=== PATIENT | female | born 1940 | race American Indian/Alaskan Native ===

== ENCOUNTER 2018-01-15 17:52 | Emergency (ER) | payer OTHER ==
[2018-01-15 19:46] VITALS: BP 146/74
--- NOTE | 2018-01-15 20:30 | EDM.PDOC ---
ED HPI GENERAL MEDICAL PROBLEM - General Chief Complaint: Respiratory Problem Stated Complaint: [id number] FEVER BAD COLD SINUSES HURT Time Seen by Provider: 01/15/18 20:30 Source of Information: Reports: Patient, RN, RN Notes Reviewed History Limitations: Reports: No Limitations - History of Present Illness INITIAL COMMENTS - FREE TEXT/NARRATIVE: Pt presents to the ER with c/o sinus congestion and cough for over a month. Patient admits to feeling hot and cold at times, and pain in the muscles in her back from coughing. Pt denies N/V/D, sore throat, CP or SOB. Onset: Gradual Location: Reports: Face - Related Data Allergies Allergy/AdvReac Type Severity Reaction Status Date / Time codeine Allergy Unknown UNKNOWN Verified 01/15/18 19:14 tramadol Allergy Unknown UNKNOWN Verified 01/15/18 19:14 Home Meds: Home Meds Glucosamine/D3/Boswellia Evonne [Osteo Bi-Flex Caplet] 1 each PO DAILY 01/15/18 [ History] Multivitamin [Multivitamins] 1 each PO DAILY 01/15/18 [History] Schneider-3 Fatty Acids [Schneider-3] 1 cap PO DAILY 01/15/18 [History] Past Medical History - Past Health History Medical/Surgical History: Denies Medical/Surgical History Respiratory History: Reports: Asthma Social & Family History - Family History Family Medical History: Noncontributory - Tobacco Use Smoking Status *Q: Former Smoker Used Tobacco, but Quit: Yes Month/Year Tobacco Last Used: 2014 Second Hand Smoke Exposure: No - Caffeine Use Caffeine Use: Reports: Coffee, Tea - Recreational Drug Use Recreational Drug Use: No - Living Situation & Occupation Living situation: Reports: with Family ED ROS GENERAL - Review of Systems Review Of Systems: ROS reveals no pertinent complaints other than HPI. ED EXAM, GENERAL - Physical Exam Exam: See Below Exam Limited By: No Limitations General Appearance: Alert, WD/WN, No Apparent Distress Eye Exam: Bilateral Eye: EOMI, Normal Inspection Ears: Normal External Exam, Hearing Grossly Normal Nose: Normal Inspection Throat/Mouth: Normal Inspection, Normal Lips, Normal Teeth, Normal Gums, Normal Oropharynx, Normal Voice, No Airway Compromise Head: Atraumatic, Normocephalic, Facial Tenderness (frontal and maxillary sinus tenderness) Neck: Normal Inspection, Supple, Non-Tender, Full Range of Motion Respiratory/Chest: No Respiratory Distress, No Accessory Muscle Use, Chest Non- Tender, Rales (to bases bilaterally) Cardiovascular: Normal Peripheral Pulses, Regular Rate, Rhythm, No Edema, No Gallop, No JVD, No Murmur, No Rub Peripheral Pulses: 2+: Radial (L), Radial (R) GI/Abdominal: Normal Bowel Sounds, Soft, Non-Tender, No Organomegaly, No Distention, No Abnormal Bruit, No Mass (Female) Exam: Deferred Rectal (Female) Exam: Deferred Back Exam: Normal Inspection, Full Range of Motion, NT Extremities: Normal Inspection, Normal Range of Motion, Non-Tender, Normal Capillary Refill, No Pedal Edema Neurological: Alert, Oriented, CN II-XII Intact, Normal Cognition, Normal Gait, Normal Reflexes, No Motor/Sensory Deficits Psychiatric: Normal Affect, Normal Mood Skin Exam: Warm, Dry, Intact, Normal Color, No Rash Lymphatic: No Adenopathy Course - Vital Signs Last Recorded V/S: Last Vital Signs Temp 98.8 F 01/15/18 18:55 Pulse 78 01/15/18 18:55 Resp 18 01/15/18 18:55 BP 146/74 H 01/15/18 18:55 Pulse Ox 95 01/15/18 18:55 - Orders/Labs/Meds Meds: Medications Discontinued Medications Generic Name Dose Route Start Last Admin Trade Name Jose Luis PRN Reason Stop Dose Admin Amoxicillin/Clavulanate Potassium 1 tab 01/15/18 20:34 01/15/18 20:40 Augmentin 875 Mg/125 Mg PO 01/15/18 20:35 1 tab ONETIME ONE Administration Departure - Departure Time of Disposition: 20:28 Disposition: Home, Self-Care 01 Condition: Fair Clinical Impression: Sinusitis Qualifiers: Sinusitis location: unspecified location Chronicity: acute Recurrence: not specified as recurrent Qualified Code(s): J01.90 - Acute sinusitis, unspecified - Discharge Information Instructions: Sinusitis, Adult, [id number] Forms: ED Department Discharge Additional Instructions: RX: Augmentin, Tessalon Val Drink plenty of water Continue to use saline nasal spray and loratidine as directed Follow up with your primary care facility
[2018-01-15] MEDS ORDERED: Amoxicillin/Clavulanate K 875-125 MG Tab PO ONE (20:34)
== END 2018-01-15 20:43 | disposition home or self-care (01) ==
LOC: DL.ED 17:52
DX: J01.90 Acute sinusitis, unspecified (principal); Z88.5 Allergy status to narcotic agent; Z87.891 Personal history of nicotine dependence; Z79.899 Other long term (current) drug therapy
CPT/HCPCS: 99283; A9270

== ENCOUNTER 2018-02-13 21:43 | Emergency (ER) | payer OTHER | END 2018-02-14 00:56 | disposition left against medical advice (07) | LOC: DL.ED 21:43 | DX: Z53.21 Procedure and treatment not carried out due to patient leaving prior to being seen by health care provider (principal) ==

== ENCOUNTER 2018-06-28 08:04 | Day surgery (SDC) | payer OTHER ==
[~2018-06-28 08:04] MED LIST: Dilation Soln 1 EA EACH EYELF ONE; Moxifloxacin 0.5% Ophth Soln 3 ML Bottle EYELF ONE; Phenylephrine 10% Ophth Soln 5 ML Bot EYELF ONE; Povidone-Iodine 5% Sterile Ophth Soln 30 ML Bottle EYELF ONE; Proparacaine 0.5% Ophth Soln 15 ML Bottle EYELF ONE; Sodium Chloride 0.9% 10 ML Syringe FLUSH SCH; Timolol Maleate 0.5% Ophth Soln 5 ML Bottle EYELF ONE
[2018-06-28] MEDS ORDERED: Midazolam 1 MG/ML 2 ML SDV IV ONE (08:05)
[2018-06-28] MEDS ORDERED: Sodium Chloride 0.9% 10 ML Syringe IV ONE (08:05)
[2018-06-28] MEDS ORDERED: Dexamethasone 4 MG/ML SDV IV ONE (08:05)
[2018-06-28] MEDS ORDERED: Povidone-Iodine 5% Sterile Ophth Soln 30 ML Bottle EYELF ONE (09:21)
[2018-06-28] MEDS ORDERED: Tetracaine HCl/PF 0.5% 4 ML Bottle EYELF ONE (09:21)
[2018-06-28] MEDS ORDERED: Balanced Salt Solution Ophth Irrig 500 ML Bottle IOCULAR ONE (09:26)
[2018-06-28] MEDS ORDERED: Lidocaine 1% 30 ML SDV INJECT ONE (09:27)
[2018-06-28] MEDS ORDERED: Balanced Salt Solution Ophth Irrig 15 ML Bottle EYELF ONE (09:27)
[2018-06-28] MEDS ORDERED: Chondroitin Sulfate/Hyaluronate Sodium Ophth Inj 0.75 ML Syringe EYELF ONE (09:29)
[2018-06-28] MEDS ORDERED: Vancomycin 500 MG SDV EYELF ONE (09:30)
[2018-06-28] MEDS ORDERED: Diclofenac Sodium 0.1% Ophth Soln 5 ML Bottle EYELF ONE (09:38)
[2018-06-28] MEDS ORDERED: Apraclonidine 0.5% Ophth Soln 5 ML Bot EYELF ONE (09:38)
[2018-06-28] MEDS ORDERED: Dexamethasone/Neomycin/Polymyxin B Ophth Oint 3.5 GM Tube EYELF ONE (09:38)
[2018-06-28 10:57] VITALS: BP 138/70
--- NOTE | 2018-06-28 11:29 | OR ---
DATE: PREOPERATIVE DIAGNOSIS: Visually significant mixed cataract, left eye. POSTOPERATIVE DIAGNOSIS: Visually significant mixed cataract, left eye. PROCEDURE: Extracapsular cataract extraction with intraocular lens implant, left eye. ANESTHESIA: Topical/local MAC. COMPLICATIONS: None. INDICATION: Ms. Ramirez was seen in the clinic. She is unhappy with her vision. She has noticed a progressive decrease over time. She has difficulty reading, difficulty driving at night. Clinical examination reveals visually significant mixed cataract with best spectacle corrected vision of 20/40. Oncoming light reveals a visual acuity of 20 unable. I explained options; I offered cataract surgery; and I explained risks including the potential for infection, retinal detachment, and loss of vision amongst others. We discussed implant options. She has requested a monofocal implant. OPERATIVE DESCRIPTION: After informed consent was obtained and the risks, benefits, and alternatives were explained, the patient was brought to the operative suite and topical anesthesia was administered. The patient was then prepped and draped in the sterile fashion, and attention was placed on the left eye. A sterile lid speculum was placed into the left eye to allow operative exposure. A full-thickness paracentesis was made in the temporal portion of the operative eye. Preservative-free lidocaine 0.1 mL was injected into the anterior chamber followed by viscoelastic. A full-thickness corneal incision was then made into the anterior chamber. A bent needle cystotome was used to create a small anselmo in the anterior capsule. The capsulorrhexis forceps was then used to create a 360-degree curvilinear capsulorrhexis. The nucleus was then removed using a phacoemulsification handpiece, and the remaining cortical material was then removed with irrigation and aspiration handpiece. Following removal of the cortical material, the capsular bag was then inspected and noted to be free of any holes or tears. Viscoelastic was then injected into the capsular bag, and the intraocular lens was inserted into the capsular bag. The viscoelastic material was then removed from both the anterior and posterior chambers and from behind the IOL. The lens and capsular bag were then reinspected. The IOL was well centered and the capsular bag intact. The wound and paracentesis sites were inspected and hydrated with balanced saline solution. Both were found to be self-sealing. The intraocular pressure was assessed digitally and found to be within normal range. A good red reflex was noted at the completion of the procedure. No complications occurred during the operation. At the completion of the procedure, Maxitrol, Voltaren, and Iopidine drops were placed into the operative eye. A sterile eye shield was placed over the operative eye, and the patient was transported to the postoperative recovery area having tolerated the procedure well. Postoperative instructions were given along with a postoperative appointment. The patient was advised to call with any questions or concerns. [facility] /[id number]
== END 2018-06-28 10:42 | disposition home or self-care (01) ==
LOC: DL.SDS 08:04
PROVIDERS: ATTEND Ophthalmology
DX: E11.36 Type 2 diabetes mellitus with diabetic cataract (principal); J45.909 Unspecified asthma, uncomplicated; M19.90 Unspecified osteoarthritis, unspecified site; Z88.5 Allergy status to narcotic agent; Z88.6 Allergy status to analgesic agent; Z87.891 Personal history of nicotine dependence; Z79.899 Other long term (current) drug therapy
CPT/HCPCS: 66984; A9270; C1780; J1100; J2250; J3370; J7050

== ENCOUNTER 2018-07-05 08:09 | Day surgery (SDC) | payer OTHER ==
[2018-07-05] MEDS ORDERED: Midazolam 1 MG/ML 2 ML SDV IV ONE (08:10)
[2018-07-05] MEDS ORDERED: Sodium Chloride 0.9% 10 ML Syringe IV ONE (08:10)
[2018-07-05] MEDS ORDERED: Dexamethasone 4 MG/ML SDV IV ONE (08:10)
[2018-07-05] MEDS ORDERED: Povidone-Iodine 5% Sterile Ophth Soln 30 ML Bottle EYERT ONE ×2 (09:05→10:18)
[2018-07-05] MEDS ORDERED: Tetracaine HCl/PF 0.5% 4 ML Bottle EYERT ONE (09:06)
[2018-07-05] MEDS ORDERED: Apraclonidine 0.5% Ophth Soln 5 ML Bot EYERT ONE (09:06)
[2018-07-05] MEDS ORDERED: Diclofenac Sodium 0.1% Ophth Soln 5 ML Bottle EYERT ONE (09:06)
[2018-07-05] MEDS ORDERED: Dexamethasone/Neomycin/Polymyxin B Ophth Oint 3.5 GM Tube EYERT ONE (09:07)
[2018-07-05] MEDS ORDERED: Balanced Salt Solution Ophth Irrig 15 ML Bottle EYERT ONE (09:07)
[2018-07-05] MEDS ORDERED: Balanced Salt Solution Ophth Irrig 500 ML Bottle IOCULAR ONE (09:07)
[2018-07-05] MEDS ORDERED: Dexamethasone 4 MG/ML SDV IOCULAR ONE (09:10)
[2018-07-05] MEDS ORDERED: Lidocaine 1% 30 ML SDV ONE (09:12)
[2018-07-05] MEDS ORDERED: Phenylephrine 10% Ophth Soln 5 ML Bot EYERT ONE (10:18)
[2018-07-05] MEDS ORDERED: Moxifloxacin 0.5% Ophth Soln 3 ML Bottle EYERT ONE (10:18)
[2018-07-05] MEDS ORDERED: Proparacaine 0.5% Ophth Soln 15 ML Bottle EYERT ONE (10:18)
[2018-07-05] MEDS ORDERED: Timolol Maleate 0.5% Ophth Soln 5 ML Bottle EYERT ONE (10:18)
[2018-07-05] MEDS ORDERED: Dilation Soln 1 EA EACH EYERT ONE (10:18)
[2018-07-05] MEDS ORDERED: Sodium Chloride 0.9% 10 ML Syringe FLUSH SCH (10:30)
[2018-07-05 10:45] VITALS: BP 120/55
--- NOTE | 2018-07-05 10:53 | OR ---
DATE: 07/05/2018 PREOPERATIVE DIAGNOSIS: Visually significant mixed cataract, right eye. POSTOPERATIVE DIAGNOSIS: Visually significant mixed cataract, right eye. PROCEDURE: Extracapsular cataract extraction with intraocular lens implant, right eye. ANESTHESIA: Topical/local MAC. COMPLICATIONS: None. INDICATION: Ms. Ramirez was seen in the clinic with complaints of blurred vision, difficulty reading, and difficulty driving. Examination revealed mixed cataract. I explained options, offered cataract surgery; and I explained risks including the potential for infection, retinal detachment, loss of vision, and need for additional surgery amongst others. She requested a monofocal implant. OPERATIVE DESCRIPTION: After informed consent was obtained and the risks, benefits, and alternatives were explained, the patient was brought to the operative suite and topical anesthesia was administered. The patient was then prepped and draped in the sterile fashion, and attention was placed on the right eye. A sterile lid speculum was placed into the right eye to allow operative exposure. A full-thickness paracentesis was made in the temporal portion of the operative eye. Preservative-free lidocaine 0.1 mL was injected into the anterior chamber followed by viscoelastic. A full-thickness corneal incision was then made into the anterior chamber. A bent needle cystotome was used to create a small anselmo in the anterior capsule. The capsulorrhexis forceps was then used to create a 360-degree curvilinear capsulorrhexis. The nucleus was then removed using a phacoemulsification handpiece, and the remaining cortical material was then removed with irrigation and aspiration handpiece. Following removal of the cortical material, the capsular bag was then inspected and noted to be free of any holes or tears. Viscoelastic was then injected into the capsular bag, and the intraocular lens was inserted into the capsular bag. The viscoelastic material was then removed from both the anterior and posterior chambers and from behind the IOL. The lens and capsular bag were then reinspected. The IOL was well centered and the capsular bag intact. The wound and paracentesis sites were inspected and hydrated with balanced saline solution. Both were found to be self-sealing. The intraocular pressure was assessed digitally and found to be within normal range. A good red reflex was noted at the completion of the procedure. No complications occurred during the operation. At the completion of the procedure, Maxitrol, Voltaren, and Iopidine drops were placed into the operative eye. A sterile eye shield was placed over the operative eye, and the patient was transported to the postoperative recovery area having tolerated the procedure well. Postoperative instructions were given along with a postoperative appointment. The patient was advised to call with any questions or concerns. [facility] /[id number]
== END 2018-07-05 10:25 | disposition home or self-care (01) ==
LOC: DL.SDS 08:09
PROVIDERS: ATTEND Ophthalmology
DX: E11.36 Type 2 diabetes mellitus with diabetic cataract (principal); H25.811 Combined forms of age-related cataract, right eye; M15.9 Polyosteoarthritis, unspecified; J45.909 Unspecified asthma, uncomplicated; Z79.84 Long term (current) use of oral hypoglycemic drugs; Z79.899 Other long term (current) drug therapy; Z87.891 Personal history of nicotine dependence
CPT/HCPCS: A9270-GY; C1780; J1100; J2250; J7050

== ENCOUNTER 2019-12-17 06:24 | Day surgery (SDC) | payer BC, OTHER ==
[~2019-12-17 06:24] MED LIST changes: +Dextrose 5%-0.45% NaCl 1,000 ML IV SCH; -Dilation Soln 1 EA EACH EYELF ONE; +Midazolam 1 MG/ML 2 ML SDV ONE; -Moxifloxacin 0.5% Ophth Soln 3 ML Bottle EYELF ONE; -Phenylephrine 10% Ophth Soln 5 ML Bot EYELF ONE; -Povidone-Iodine 5% Sterile Ophth Soln 30 ML Bottle EYELF ONE; -Proparacaine 0.5% Ophth Soln 15 ML Bottle EYELF ONE; +Sodium Chloride 0.9% 10 ML Syringe FLUSH PRN; -Sodium Chloride 0.9% 10 ML Syringe FLUSH SCH; -Timolol Maleate 0.5% Ophth Soln 5 ML Bottle EYELF ONE; +fentaNYL 100 MCG/2 ML SDV ONE
[2019-12-17] MEDS ORDERED: fentaNYL 100 MCG/2 ML SDV IV ONE ×3 (06:25→07:31)
[2019-12-17] MEDS ORDERED: Midazolam 1 MG/ML 2 ML SDV IV ONE ×3 (06:25→07:34)
--- NOTE | 2019-12-17 09:27 | OR ---
DATE: 12/17/2019 PROCEDURE: Total colonoscopy and multiple cold snare polypectomies. INSTRUMENT USED: PCF-H190DL Olympus video colonoscope. PREMEDICATIONS: Fentanyl 100 mcg intravenous, Versed 2.5 mg intravenous, nasal O2 cannula. Procedure was done under pulse oximetry, BP recording, and topographical drafter. INDICATIONS: The patient with rectal bleeding. Colonoscopic examination is done for detection of any polypoid lesions and removal, endoscopic hemostasis therapy if needed. DESCRIPTION OF PROCEDURE: Initial rectal exam was unremarkable. Rigid anoscopy showed small internal hemorrhoids without bleeding from them. The colonoscope was passed with ease. Numerous scattered diverticula were noted in the distal left colon along with some deformity. The scope was passed with ease up to the ileocecal area. Photographs were taken of the normal-appearing cecum identified by landmarks of appendiceal orifice and double-bulged ileocecal folds. No bleeding was noted from any of the visualized areas at the commencement of the examination. The bowel preparation was found to be adequate, Harrietta scale 2 in right colon, scale 3 in other areas of the colon. Total score 7. No stricture. No vascular ectasia. No large isolated ulcerations seen. No evidence of diffuse inflammatory bowel disease in the form of friability, contact bleeding, or ulcerations. 3 mm sized benign-appearing polyps, 2 in number were noted in the transverse colon. Photograph was taken of the largest polyp, cold snare polypectomies were done, the tissues were retrieved and sent for histopathology. Probing the proximal sides of folds and flexures using adequate distention and clearing up the stool material, withdrawal of the scope was made. No bleeding was noted from any of the visualized areas at the completion of examination. IMPRESSION: 1. Internal hemorrhoids. 2. Diverticulosis. 3. Diminutive transverse colon polyps. The patient tolerated the procedure well. [facility] /[id number]
[2019-12-17 09:56] VITALS: BP 107/60; PULSE 60
--- NOTE | 2019-12-17 13:48 | LETTER ---
12/17/2019 Ivette Acuña, MICAELA [facility] [address] [place] [address] RE: BETI FARRIS : 1940 Dear Ms. Acuña: Ms. Beti Farris had colonoscopic examination done this morning and she tolerated the procedure well. I herewith send a copy of the endoscopy note and photographs for your review. Thank you. Sincerely, [facility] /[id number]
== END 2019-12-17 10:00 | disposition home or self-care (01) ==
LOC: DL.ENDO 06:24
PROVIDERS: ATTEND Internal Medicine Gastroenterology
DX: D12.3 Benign neoplasm of transverse colon (principal); K57.31 Diverticulosis of large intestine without perforation or abscess with bleeding; K64.8 Other hemorrhoids; H91.90 Unspecified hearing loss, unspecified ear; M19.90 Unspecified osteoarthritis, unspecified site; E66.09 Other obesity due to excess calories; Z68.29 Body mass index [BMI] 29.0-29.9, adult
CPT/HCPCS: 45385; J2250; J3010; J7042

== ENCOUNTER 2020-07-22 20:04 | Inpatient (IN) | payer BC, MEDICARE, OTHER ==
[2020-07-22 21:08] LABS: ANION GAP 17.5 mEq/L (7-13); CHLORIDE,CL 101 mmol/L (98-107); SODIUM,NA 135 mmol/L (136-145)
--- NOTE | 2020-07-22 21:38 | CR ---
PROCEDURE INFORMATION: Exam: XR Chest, 1 View Exam date and time: 07/22/2020 9:05 PM Age: 80 years old Clinical indication: Cough; Additional info: Covid + cough TECHNIQUE: Imaging protocol: XR of the chest Views: 1 view. COMPARISON: CR Chest 1V Frontal 04/24/2016 8:59 PM FINDINGS: Lungs: Clear lungs. Pleural space: No pneumothorax. No sizable pleural effusion. Heart/Mediastinum: No cardiomegaly. Bones/joints: Unremarkable. IMPRESSION: Clear lungs.
[2020-07-22] MEDS ORDERED: Dexamethasone 4 MG/ML SDV IVPUSH ONE (21:42)
--- NOTE | 2020-07-22 21:45 | EDM.PDOC ---
ED HPI GENERAL MEDICAL PROBLEM - General Chief Complaint: General Stated Complaint: 97.3*, COUGH, CHILLS, DIARRHEA, LOW OXYGEN Time Seen by Provider: 07/22/20 20:15 Source of Information: Reports: Patient History Limitations: Reports: No Limitations - History of Present Illness INITIAL COMMENTS - FREE TEXT/NARRATIVE: ED with c/o SOB with activity, body aches, Diarrhea x 3 today. Onset sx Tuesday. Hx asthma, and arthritis. Called EMS this john but refused transport. EMS called to notify that patient had sats in 80. On arrival 86-88 on room air. - Related Data Allergies Allergy/AdvReac Type Severity Reaction Status Date / Time codeine Allergy Unknown Nausea and Verified 07/22/20 20:42 Vomiting tramadol Allergy Unknown Nausea and Verified 07/22/20 20:42 Vomiting Home Meds: Home Meds Albuterol Sulfate [Proair Hfa] 1 puff INH ASDIRECTED PRN 06/23/18 [History] Diclofenac Sodium [Voltaren 0.1% Ophth Soln] 1 applic TOP ASDIRECTED 06/23/18 [History] Lidocaine 5% [Lidoderm 5%] 1 patch TOP DAILY PRN 06/23/18 [History] Sodium Chloride [Saline Nasal Haines] 1 spray NASBOTH ASDIRECTED 06/23/18 [History] Acetaminophen [Tylenol Arthritis Pain] 2 tab PO ASDIRECTED 06/28/18 [History] diphenhydrAMINE [Benadryl] 25 mg PO DAILY PRN 12/14/19 [History] Past Medical History - Past Health History Medical/Surgical History: Denies Medical/Surgical History HEENT History: Reports: Allergic Rhinitis, Cataract Cardiovascular History: Reports: None Respiratory History: Reports: Asthma Gastrointestinal History: Reports: None Genitourinary History: Reports: None RN DOCUMENTATION History: Reports: , Spontaneous Musculoskeletal History: Reports: Arthritis Neurological History: Reports: None Psychiatric History: Reports: Anxiety Endocrine/Metabolic History: Reports: Diabetes, Type II Hematologic History: Reports: Anemia Immunologic History: Reports: None Oncologic (Cancer) History: Reports: None Dermatologic History: Reports: Other (See Below) Other Dermatologic History: RED RASHY AREA TO l) FT, LOWER LEG - Infectious Disease History Infectious Disease History: Reports: Measles, Shingles - Past Surgical History Head Surgeries/Procedures: Reports: None HEENT Surgical History: Reports: None, Cataract Surgery Cardiovascular Surgical History: Reports: None Respiratory Surgical History: Reports: None GI Surgical History: Reports: None Female Surgical History: Reports: None Musculoskeletal Surgical History: Reports: None Social & Family History - Family History Family Medical History: Noncontributory - Tobacco Use Tobacco Use Status *Q: Never Tobacco User Second Hand Smoke Exposure: No - Caffeine Use Caffeine Use: Reports: Coffee, Tea Other Caffeine Use: 12 OZ DAILY - Recreational Drug Use Recreational Drug Use: No - Living Situation & Occupation Living situation: Reports: with Family ED ROS GENERAL - Review of Systems Review Of Systems: See Below Constitutional: Reports: Chills, Decreased Appetite (still has taste and smeell) Respiratory: Reports: Shortness of Breath, Cough Cardiovascular: Reports: Dyspnea on Exertion. Denies: Chest Pain, Edema, Lightheadedness, Palpitations GI/Abdominal: Reports: Diarrhea Musculoskeletal: Reports: Other (generalized body aches, worse on Tuesday and Tuesday, some better today) Neurological: Reports: No Symptoms ED EXAM, GENERAL - Physical Exam Exam: See Below Exam Limited By: No Limitations General Appearance: Alert, Mild Distress Eye Exam: Bilateral Eye: EOMI Ears: Normal External Exam, Normal TMs, Hearing Loss Nose: Normal Inspection Throat/Mouth: Normal Inspection Head: Atraumatic, Normocephalic Neck: Normal Inspection Respiratory/Chest: No Respiratory Distress, Decreased Breath Sounds (bases, dyspnea mild with ambulation) Cardiovascular: Normal Peripheral Pulses, Regular Rate, Rhythm GI/Abdominal: Normal Bowel Sounds Back Exam: Normal Inspection Extremities: Normal Inspection Neurological: Alert, Oriented, Normal Cognition Psychiatric: Normal Affect Skin Exam: Warm, Dry, Intact, Normal Color Course - Vital Signs Last Recorded V/S: Last Vital Signs Temp 99.1 F 07/22/20 22:15 Pulse 69 07/22/20 22:15 Resp 18 07/22/20 22:15 BP 106/44 L 07/22/20 22:15 Pulse Ox 92 L 07/22/20 22:34 - Orders/Labs/Meds Orders: Active Orders 24 hr Category Date Time Status Admission Diagnosis [ADT] Stat ADT 07/22/20 21:43 Ordered Admission Status [Patient Status] [ADT] Routine ADT 07/22/20 21:43 Active Patient Status [ADT] Routine ADT 07/22/20 22:34 Active Bedrest Bedside Commode [RC] ASDIRECTED Care 07/22/20 22:27 Active Blood Glucose Check, Bedside [RC] QIDACANDBED Care 07/22/20 22:27 Active Cardiac Monitoring [RC] . DIRECTED Care 07/22/20 21:43 Active EKG Documentation Completion [RC] STAT Care 07/22/20 20:13 Active Intake and Output [RC] QSHIFT Care 07/22/20 22:35 Active Oxygen Therapy [RC] PRN Care 07/22/20 22:34 Active RT Aerosol Therapy [RC] ASDIRECTED Care 07/22/20 22:37 Active VTE/DVT Education [RC] PER UNIT ROUTINE Care 07/22/20 22:34 Active Vital Signs [RC] Q4H Care 07/22/20 22:34 Active Clear Liquid Diet [DIET] Diet 07/23/20 Breakfast Active CBC W/O DIFF,HEMOGRAM [HEME] AM Lab 07/23/20 05:11 Ordered COMPREHENSIVE METABOLIC PN,CMP [CHEM] AM Lab 07/23/20 05:11 Ordered CULTURE BLOOD [BC] Stat Lab 07/22/20 20:37 Received Acetaminophen [TylenoL] Med 07/22/20 22:27 Active 650 mg PO Q4H PRN Albuterol [Proventil Neb Soln] Med 07/22/20 22:27 Active 2.5 mg NEB Q2H PRN Enoxaparin [Lovenox] Med 07/23/20 09:00 Active 40 mg SUBCUT DAILY Ondansetron [Zofran ODT] Med 07/22/20 22:27 Active 4 mg PO Q4H PRN Sodium Chloride 0.9% [Normal Saline] 1,000 ml Med 07/22/20 22:30 Active IV ASDIRECTED Isolation [COMM] Routine Oth 07/22/20 20:14 Active Resuscitation Status Routine Resus Stat 07/22/20 22:27 Ordered Medication Orders Acetaminophen (Tylenol) 650 mg PO Q4H PRN PRN Reason: Pain (Mild 1-3)/fever Albuterol (Proventil Neb Soln) 2.5 mg NEB Q2H PRN PRN Reason: shortness of breath/wheezing Albuterol (Proventil Hfa) 0 gm INH QID ADAM Dexamethasone (Dexamethasone) 6 mg IVPUSH DAILY ADAM Dextrose/Water (Dextrose 50% In Water) 50 ml IV ASDIRECTED PRN PRN Reason: Hypoglycemia Diphenhydramine HCl (Benadryl) 25 mg PO DAILY PRN PRN Reason: Allergies Enoxaparin Sodium (Lovenox) 40 mg SUBCUT DAILY ADAM Glucagon (Glucagen) 1 mg IM ASDIRECTED PRN PRN Reason: Hypoglycemia Sodium Chloride (Normal Saline) 1,000 mls @ 125 mls/hr IV ASDIRECTED ADAM Remdesivir 100 mg/ Sodium (Chloride) 230 mls @ 230 mls/hr IV Q24H ADAM Stop: 07/26/20 23:59 Insulin Human Lispro (Humalog) 0 unit SUBCUT WITHMEALSANDBED ADAM; Protocol Lidocaine (Lidoderm 5%) 700 mg TOP DAILY PRN PRN Reason: Pain Ondansetron HCl (Zofran Odt) 4 mg PO Q4H PRN PRN Reason: nausea, able to take PO Labs: Laboratory Tests 07/22/20 07/22/20 07/22/20 Range/Units 20:15 20:37 20:37 WBC 3.3 L (5.0-10.0) 10^3/uL RBC 4.76 (4.2-5.4) 10^6/uL Hgb 14.9 (12.0-16.0) g/dL Hct 43.3 (37.0-47.0) % MCV 91.0 D (80-100) fL MCH 31.3 (27.0-34.0) pg MCHC 34.4 (33.0-35.0) g/dL Plt Count 113 L (150-450) 10^3/uL Neut % (Auto) 47.4 (42.2-75.2) % Lymph % (Auto) 42.6 (20.5-50.1) % [place] % (Auto) 9.7 H (2-8) % Eos % (Auto) 0.0 L (1.0-3.0) % Baso % (Auto) 0.3 (0.0-1.0) % PT (9.0-12.0) SEC INR (0.9-1.2) D-Dimer, Quantitative 329 (0-400) ng/mL Sodium (136-145) mmol/L Potassium (3.5-5.1) mmol/L Chloride (98-107) mmol/L Carbon Dioxide (21-32) mmol/L Anion Gap (7-13) mEq/L BUN (7-18) mg/dL Creatinine (0.55-1.02) mg/dL Est Cr Clr Drug Dosing mL/min Estimated GFR (MDRD) BUN/Creatinine Ratio (No establ ref range) Glucose (74-99) mg/dL Lactic Acid (0.4-2.0) mmol/L Calcium (8.5-10.1) mg/dL Ferritin (8-252) mg/mL Total Bilirubin (0.2-1.0) mg/dL AST (15-37) U/L ALT (14-59) U/L Alkaline Phosphatase (46-116) U/L Troponin I (0.000-0.056) ng/mL B-Natriuretic Peptide (0-100) pg/ml Total Protein (6.4-8.2) g/dL Albumin (3.4-5.0) g/dL Globulin Albumin/Globulin Ratio SARS CoV-2 RNA Rapid KALLIE Positive H (NEGATIVE) 07/22/20 07/22/20 07/22/20 Range/Units 20:37 20:37 20:37 WBC (5.0-10.0) 10^3/uL RBC (4.2-5.4) 10^6/uL Hgb (12.0-16.0) g/dL Hct (37.0-47.0) % MCV (80-100) fL MCH (27.0-34.0) pg MCHC (33.0-35.0) g/dL Plt Count (150-450) 10^3/uL Neut % (Auto) (42.2-75.2) % Lymph % (Auto) (20.5-50.1) % [place] % (Auto) (2-8) % Eos % (Auto) (1.0-3.0) % Baso % (Auto) (0.0-1.0) % PT 11.3 (9.0-12.0) SEC INR 1.2 (0.9-1.2) D-Dimer, Quantitative (0-400) ng/mL Sodium 135 L (136-145) mmol/L Potassium 3.5 (3.5-5.1) mmol/L Chloride 101 (98-107) mmol/L Carbon Dioxide 20 L (21-32) mmol/L Anion Gap 17.5 H (7-13) mEq/L BUN 14 (7-18) mg/dL Creatinine 0.87 (0.55-1.02) mg/dL Est Cr Clr Drug Dosing 42.42 mL/min Estimated GFR (MDRD) > 60 BUN/Creatinine Ratio 16.1 (No establ ref range) Glucose 151 H (74-99) mg/dL Lactic Acid 2.0 (0.4-2.0) mmol/L Calcium 7.8 L (8.5-10.1) mg/dL Ferritin (8-252) mg/mL Total Bilirubin 1.2 H (0.2-1.0) mg/dL AST 207 H (15-37) U/L ALT 94 H (14-59) U/L Alkaline Phosphatase 93 (46-116) U/L Troponin I < 0.017 (0.000-0.056) ng/mL B-Natriuretic Peptide 27 (0-100) pg/ml Total Protein 7.6 (6.4-8.2) g/dL Albumin 3.0 L (3.4-5.0) g/dL Globulin 4.6 Albumin/Globulin Ratio 0.65 SARS CoV-2 RNA Rapid KALLIE (NEGATIVE) 07/22/20 Range/Units 20:37 WBC (5.0-10.0) 10^3/uL RBC (4.2-5.4) 10^6/uL Hgb (12.0-16.0) g/dL Hct (37.0-47.0) % MCV (80-100) fL MCH (27.0-34.0) pg MCHC (33.0-35.0) g/dL Plt Count (150-450) 10^3/uL Neut % (Auto) (42.2-75.2) % Lymph % (Auto) (20.5-50.1) % [place] % (Auto) (2-8) % Eos % (Auto) (1.0-3.0) % Baso % (Auto) (0.0-1.0) % PT (9.0-12.0) SEC INR (0.9-1.2) D-Dimer, Quantitative (0-400) ng/mL Sodium (136-145) mmol/L Potassium (3.5-5.1) mmol/L Chloride (98-107) mmol/L Carbon Dioxide (21-32) mmol/L Anion Gap (7-13) mEq/L BUN (7-18) mg/dL Creatinine (0.55-1.02) mg/dL Est Cr Clr Drug Dosing mL/min Estimated GFR (MDRD) BUN/Creatinine Ratio (No establ ref range) Glucose (74-99) mg/dL Lactic Acid (0.4-2.0) mmol/L Calcium (8.5-10.1) mg/dL Ferritin 203 (8-252) mg/mL Total Bilirubin (0.2-1.0) mg/dL AST (15-37) U/L ALT (14-59) U/L Alkaline Phosphatase (46-116) U/L Troponin I (0.000-0.056) ng/mL B-Natriuretic Peptide (0-100) pg/ml Total Protein (6.4-8.2) g/dL Albumin (3.4-5.0) g/dL Globulin Albumin/Globulin Ratio SARS CoV-2 RNA Rapid KALLIE (NEGATIVE) Meds: Medications Generic Name Dose Route Start Last Admin Trade Name Freq PRN Reason Stop Dose Admin Acetaminophen 650 mg 07/22/20 22:27 Tylenol PO Q4H PRN Pain (Mild 1-3)/fever Albuterol 2.5 mg 07/22/20 22:27 Proventil Neb Soln NEB Q2H PRN shortness of breath/wheezing Albuterol 0 gm 07/23/20 09:00 Proventil Hfa INH QID ADAM Dexamethasone 6 mg 07/23/20 09:00 Dexamethasone IVPUSH DAILY ADAM Dextrose/Water 50 ml 07/22/20 23:07 Dextrose 50% In Water IV ASDIRECTED PRN Hypoglycemia Diphenhydramine HCl 25 mg 07/22/20 22:37 Benadryl PO DAILY PRN Allergies Enoxaparin Sodium 40 mg 07/23/20 09:00 Lovenox SUBCUT DAILY [facility] Glucagon 1 mg 07/22/20 23:07 Glucagen IM ASDIRECTED PRN Hypoglycemia Sodium Chloride 1,000 mls @ 125 mls/hr 07/22/20 22:30 Normal Saline IV ASDIRECTED ADAM Remdesivir 100 mg/ Sodium 230 mls @ 230 mls/hr 07/23/20 23:00 Chloride IV 07/26/20 23:59 Q24H [facility] Insulin Human Lispro 0 unit 07/23/20 08:00 Humalog SUBCUT WITHMEALSANDBED [facility] Protocol Lidocaine 700 mg 07/22/20 22:37 Lidoderm 5% TOP DAILY PRN Pain Ondansetron HCl 4 mg 07/22/20 22:27 Zofran Odt PO Q4H PRN nausea, able to take PO Discontinued Medications Generic Name Dose Route Start Last Admin Trade Name Freq PRN Reason Stop Dose Admin Dexamethasone 6 mg 07/22/20 21:42 07/22/20 21:55 Dexamethasone IVPUSH 07/22/20 21:43 6 mg ONETIME ONE Administration Remdesivir 200 mg/ Sodium 210 mls @ 210 mls/hr 07/22/20 23:00 07/22/20 23:54 Chloride IV 07/22/20 23:59 210 mls/hr ONETIME ONE Administration Departure - Departure Time of Disposition: 21:45 Disposition: Admitted As Inpatient 67 Condition: Fair Clinical Impression: Hypoxemia, COVID-19 - Discharge Information Sepsis Event Note (ED) - Evaluation Sepsis Screening Result: Possible Sepsis Risk - Focused Exam Vital Signs: Vital Signs Temp Pulse Resp BP BP Pulse Ox 07/22/20 22:15 99.1 F 69 18 106/44 L 122/48 L 92 L 07/22/20 20:16 100.5 F 80 28 H 120/63 90 L - My Orders Last 24 Hours: My Active Orders 07/22/20 20:13 EKG Documentation Completion [RC] STAT 07/22/20 20:14 Isolation [COMM] Routine 07/22/20 20:37 CULTURE BLOOD [BC] Stat 07/22/20 21:43 Admission Diagnosis [ADT] Stat Admission Status [Patient Status] [ADT] Routine Cardiac Monitoring [RC] . DIRECTED - Assessment/Plan Last 24 Hours: My Active Orders 07/22/20 20:13 EKG Documentation Completion [RC] STAT 07/22/20 20:14 Isolation [COMM] Routine 07/22/20 20:37 CULTURE BLOOD [BC] Stat 07/22/20 21:43 Admission Diagnosis [ADT] Stat Admission Status [Patient Status] [ADT] Routine Cardiac Monitoring [RC] . DIRECTED
[2020-07-22] MEDS ORDERED: Ondansetron 4 MG Tab.DIS PO PRN (22:27)
[2020-07-22] MEDS ORDERED: Albuterol 0.083% 2.5 MG/3 ML Neb Soln NEB PRN (22:27)
[2020-07-22] MEDS ORDERED: Acetaminophen 325 MG Tab PO PRN (22:27)
[2020-07-22] MEDS ORDERED: Sodium Chloride 0.9% 1,000 ML IV SCH (22:30)
[2020-07-22] MEDS ORDERED: Lidocaine 5% 700 MG Patch TOP PRN (22:37)
[2020-07-22] MEDS ORDERED: Glucagon,Human Recombinant 1 MG Vial IM PRN (23:07)
[2020-07-22] MEDS ORDERED: 50% Dextrose in Water 50 ML Syringe IV PRN (23:07)
--- NOTE | 2020-07-22 23:55 | HP ---
CHIEF COMPLAINT: Fever, chills, arthralgias, and shortness of breath. HISTORY OF PRESENT ILLNESS: The patient is a 80-year-old lady who was admitted through the emergency room because the patient has been having some fever and chills and arthralgias that have been going on since Tuesday and today she had diarrhea 3 times. She called in the EMS and her saturation was in the 80s on room air, and the patient then decided to proceed to the emergency room by private vehicle. On arrival in the emergency room, the patient's saturation was 86% to 88% on room air. The patient denies any chest pain, orthopnea, PND, headache, abdominal pain, dysuria, nor any other complaints. In the emergency room, she had some workup including [id number], which came back positive. Because of this, she was then admitted for further evaluation and management. PAST MEDICAL HISTORY: Remarkable for asthma, osteoarthritis, and type 2 diabetes mellitus. FAMILY HISTORY: Noncontributory. SOCIAL HISTORY: The patient is a nonsmoker, nonalcohol drinker. 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 REVIEW OF SYSTEMS: As in HPI. The rest of the review of systems is negative. HOME MEDICATIONS: Albuterol sulfate, Voltaren, Lidoderm, saline nasal spray, and Tylenol. ALLERGIES: Codeine and tramadol. PHYSICAL EXAMINATION: General: The patient is alert and oriented, very pleasant lady, not in any acute distress. Vital Signs: Blood pressure is 120/63, pulse of 80, respirations 20, temperature of 100.5, saturation is 90% on room air. HEENT: Normocephalic. There are pink palpebral conjunctivae. Sclerae anicteric. No JVD. No lymphadenopathy. Neck: Supple. Heart: Regular rate and rhythm. Normal S1 and S2. No gallops. No rubs. Lungs: Diminished breath sounds in both bases, but no significant crackles, no wheezing. Abdomen: Soft, nontender. Bowel sounds positive. Extremities: Negative for any significant pedal edema. No calf tenderness. LABORATORY WORKUP: CBC: WBC 3.3, hemoglobin is 14.9, hematocrit is 43.3, platelets are 113. Protime is 11.3, INR is 1.2. Comp panel: Sodium is 135, potassium is 3.5, chloride is 101, carbon dioxide is 20, anion gap is 17.5. Glucose is 151, calcium 7.8, total bilirubin of 1.2, AST of 207, ALT of 94. The rest of the panel unremarkable. Troponin is less than 0.017. BNP is 27. SARS- CoV-2 RNA, rapid KALLIE is positive. Chest x-ray is within normal limits. ADMITTING DIAGNOSES: 1. Coronavirus disease 19 infection. 2. Hypoxemia. 3. Gastroenteritis. 4. History of asthma. 5. Type 2 diabetes mellitus. TREATMENT PLAN: The patient is going to be admitted to isolation. She will be given remdesivir IV and dexamethasone, and blood cultures sent, and she will be given bronchodilators, and the rest of the management as necessary. The patient is a full code. [facility] /[id number]
[2020-07-23 07:08] LABS: ANION GAP 14.2 mEq/L (7-13); CHLORIDE,CL 103 mmol/L (98-107); SODIUM,NA 136 mmol/L (136-145)
[2020-07-23] MEDS: Albuterol 6.7 GM Inhaler INH SCH ×4 (09:49→21:54)
[2020-07-23] MEDS: Enoxaparin 40 MG/0.4 ML Syringe SUBCUT SCH (09:55)
[2020-07-23] MEDS: Dexamethasone 4 MG/ML SDV IVPUSH SCH (09:59)
--- NOTE | 2020-07-23 10:49 | PN ---
DATE: 07/23/2020 SUBJECTIVE: The patient is a 80-year-old lady who was admitted with hypoxemia and fever and chills and diarrhea and COVID-19 infection. The patient this morning is feeling a little bit better, although still feeling achy in her joints, but so far has not had any problems with diarrhea. The patient denies any chest pain or shortness of breath nor any other complaints. LABORATORY WORKUP: This morning. CBC: WBC is 1.7, hemoglobin is 14.5, hematocrit is 42.7, platelets are 109. Comp panel: Glucose is 186, AST is 178, ALT is 87, albumin is 2.7. The rest of the panel unremarkable. OBJECTIVE: Vital Signs: Blood pressure is 102/46, pulse 52, respirations 20, temperature of 96.3, saturation is 94% on room air. Heart: Regular rate and rhythm. Normal S1 and S2. No gallops. No rubs. Lungs: Equal bilaterally. No crackles, no wheezing. Abdomen: Soft, nontender. Bowel sounds positive. Extremities: Negative for any pedal edema. No calf tenderness. PLAN: We will continue with her present management, and continue with dexamethasone and remdesivir, and we will recheck CBC and comp panel in a.m. [facility] /[id number]
[2020-07-23] MEDS: Insulin Lispro 100 Units/ML 3 ML Vial SUBCUT SCH ×4 (11:35→21:51)
[2020-07-23] MEDS: diphenhydrAMINE 25 MG Tab PO PRN (21:54)
[2020-07-24] MEDS: Menthol/Methyl Salicylate 85 GM Tube TOP PRN ×2 (00:50→20:53)
[2020-07-24 07:02] LABS: CHLORIDE,CL 105 mmol/L (98-107); SODIUM,NA 138 mmol/L (136-145)
[2020-07-24] MEDS: Dexamethasone 4 MG/ML SDV IVPUSH SCH (10:39)
[2020-07-24] MEDS: Albuterol 6.7 GM Inhaler INH SCH ×4 (10:39→20:52)
[2020-07-24] MEDS: Insulin Lispro 100 Units/ML 3 ML Vial SUBCUT SCH ×4 (10:41→20:51)
[2020-07-24] MEDS: Enoxaparin 40 MG/0.4 ML Syringe SUBCUT SCH (10:42)
--- NOTE | 2020-07-24 11:52 | PN ---
DATE: 07/24/2020 SUBJECTIVE: The patient continues to do well, and so far, has not had any problems with diarrhea, and the arthralgia and the body aches have also improved. The patient denies any chest pain, worsening of shortness of breath, abdominal pain, or any other complaints. LABORATORY DATA: Lab workup this morning. CBC: WBC is 3.3, hemoglobin is 14, hematocrit is 41, platelet is 114. Comp panel: Glucose is 252, AST is 90, ALT is 64 (improving). Rest of the panel unremarkable. OBJECTIVE: Vital Signs: Blood pressure is 93/52, pulse of 60, respirations 18, temperature of 98.2, saturation is 93% on room air. Heart: Regular rate and rhythm. Normal S1 and S2. No gallops. No rubs. Lungs: Equal bilaterally. No crackles. No wheezing. Abdomen: Soft, nontender. Bowel sounds positive. Extremities: Negative for any pedal edema. No calf tenderness. MEDICATIONS: Reviewed. PLAN: We will continue with her present management and we will finish the 5-day course of Remdesivir. [facility] /[id number]
[2020-07-24] MEDS: diphenhydrAMINE 25 MG Tab PO PRN (22:41)
[2020-07-25 07:00] LABS: CHLORIDE,CL 108 mmol/L (98-107); SODIUM,NA 141 mmol/L (136-145)
[2020-07-25] MEDS: Enoxaparin 40 MG/0.4 ML Syringe SUBCUT SCH (09:17)
[2020-07-25] MEDS: Insulin Lispro 100 Units/ML 3 ML Vial SUBCUT SCH ×4 (09:18→21:13)
[2020-07-25] MEDS: Dexamethasone 4 MG/ML SDV IVPUSH SCH (09:18)
[2020-07-25] MEDS: Albuterol 6.7 GM Inhaler INH SCH ×4 (09:19→21:15)
--- NOTE | 2020-07-25 12:39 | PN ---
DATE: 07/25/2020 SUBJECTIVE: The patient continues to do well. The patient denies any significant ongoing complaints. Denies any diarrhea, chest pain, shortness of breath, nor any other significant complaints and the patient's generalized aches and pains have actually improved too. LABORATORY DATA: Lab workup this morning. Comp panel: Glucose is 209, calcium 7.6, AST is 54 (improvement), total protein of 6, and albumin is 2.4. The rest of the panel is unremarkable. OBJECTIVE: Vital Signs: Blood pressure is 89/44, pulse of 59, respirations 16, temperature of 97.9, and saturation is 92% on room air. Heart: Regular rate and rhythm. Normal S1 and S2. No gallops. No rubs. Lungs: Equal bilaterally. No significant crackles. No wheezing. Abdomen: Soft, nontender. Bowel sounds positive. Extremities: Negative for any significant pedal edema. No calf tenderness. PLAN: We will continue with her present management, and she continues to do well. Anticipate discharge in a.m. [facility] /[id number]
[2020-07-25] MEDS: diphenhydrAMINE 25 MG Tab PO PRN (21:16)
[2020-07-25] MEDS: Menthol/Methyl Salicylate 85 GM Tube TOP PRN (21:18)
[2020-07-26] MEDS ORDERED: Sodium Chloride 0.9% 10 ML Syringe IV SCH
[2020-07-26] MEDS: Insulin Lispro 100 Units/ML 3 ML Vial SUBCUT SCH (08:00)
[2020-07-26] MEDS: Dexamethasone 4 MG/ML SDV IVPUSH SCH (09:00)
[2020-07-26] MEDS: Enoxaparin 40 MG/0.4 ML Syringe SUBCUT SCH (09:00)
[2020-07-26 09:53] VITALS: BP 91/42
--- NOTE | 2020-07-26 10:09 | PN ---
DATE: 07/26/2020 SUBJECTIVE: The patient continues to do well. She had a good night sleep. Denies any myalgias or arthralgias. Denies any chest pain, shortness of breath, fever, chills, nor any other complaints. LABORATORY WORKUP: This morning, glucose is 207. OBJECTIVE: Vital Signs: Blood pressure is 106/94, pulse 55, respirations of 18, temperature of 98.1, saturation is 93% on room air. Heart: Regular rate and rhythm. Normal S1 and S2. No gallops. No rubs. Lungs: Equal bilaterally. No crackles. No wheezing. Abdomen: Soft, nontender. Bowel sounds positive. Extremities: Negative for any pedal edema. No calf tenderness. PLAN: We will discharge the patient home today, and we will continue with dexamethasone for the next 5 days and continue with albuterol inhaler. Follow up with primary care provider in 7 to 10 days. [facility] /[id number]
--- NOTE | 2020-07-26 10:09 | DISCH ---
FINAL DIAGNOSES: 1. Coronavirus-19 infection. 2. Hypoxemia. 3. Gastroenteritis. 4. Asthma. 5. Type 2 diabetes mellitus. BRIEF HISTORY OF PRESENT ILLNESS: Please see H and P. PERTINENT LABS, X-RAY, AND OTHER TESTS ON ADMISSION: See H and P. Blood cultures x2 negative. Influenza A and B are negative. HOSPITAL COURSE: The patient was admitted to General Medicine floor/isolation. The patient was started on dexamethasone IV and also started on Remdesivir IV, and also on albuterol inhalers. She was placed on deep vein thrombosis prophylaxis as well as sliding scale insulin. The patient did well with above regimen. The patient's oxygen saturation improved, as well as her diarrhea. Rest of the hospital course was uncomplicated. She remained stable and she was subsequently discharged. CONDITION ON DISCHARGE: Improved. DISCHARGE INSTRUCTIONS: We will continue with dexamethasone for the next 5 days, and we will also continue with albuterol inhaler and continue with the rest of her home medications. Follow up with primary care provider in 7 to 10 days. [facility] /[id number]
[2020-07-26] MEDS: Albuterol 6.7 GM Inhaler INH SCH (11:40)
[2020-07-26 11:49] VITALS: PULSE 95
== END 2020-07-26 11:00 | disposition home or self-care (01) | DRG 137 ==
LOC: DL.ED 20:04 → DL.MS 21:51 → UNDOADMIN 21:51 → DL.MS 22:34
PROVIDERS: ADMIT Internal Medicine; ATTEND Internal Medicine
PROC: XW033E5 Introduction of Remdesivir Anti-infective into Peripheral Vein, Percutaneous Approach, New Technology Group 5 (ICD-10-PCS; principal; 2020-07-22)
PROC: 8E0ZXY6 Isolation (ICD-10-PCS; 2020-07-22)
DX: U07.1 COVID-19 (principal); K52.9 Noninfective gastroenteritis and colitis, unspecified; J45.909 Unspecified asthma, uncomplicated; E11.9 Type 2 diabetes mellitus without complications; Z79.899 Other long term (current) drug therapy; M19.90 Unspecified osteoarthritis, unspecified site; Z88.5 Allergy status to narcotic agent; Z98.49 Cataract extraction status, unspecified eye
CPT/HCPCS: 36415; 71045; 80053; 80076; 82728; 82962; 83605; 83880; 84484; 85025; 85027; 85379; 85610; 87040; 87804; 93005; 96374; 99222; 99232; 99238; 99284; 99285-25; A9270-GY; J1100; J1650; J1815-GY; J7050; U0002

== ENCOUNTER 2020-08-15 15:56 | Inpatient (IN) | payer BC, MEDICARE, OTHER ==
[2020-08-15 17:51] LABS: ANION GAP 11.8 mEq/L (7-13); CHLORIDE,CL 103 mmol/L (98-107); SODIUM,NA 136 mmol/L (136-145)
--- NOTE | 2020-08-15 18:14 | EDM.PDOC ---
<RondonKris Karmen - Last Filed: 08/15/20 20:08> ED HPI GENERAL MEDICAL PROBLEM - General Chief Complaint: Fever Stated Complaint: SENT FROM [facility] Time Seen by Provider: 08/15/20 17:15 - Related Data Allergies Allergy/AdvReac Type Severity Reaction Status Date / Time codeine Allergy Unknown Nausea and Verified 08/15/20 17:13 Vomiting tramadol Allergy Unknown Nausea and Verified 08/15/20 17:13 Vomiting Home Meds: Home Meds Lidocaine 5% [Lidoderm 5%] 1 patch TOP DAILY PRN 06/23/18 [History] Sodium Chloride [Saline Nasal [place]] 1 spray NASBOTH ASDIRECTED PRN 06/23/18 [History] Acetaminophen [Tylenol Arthritis Pain] 2 tab PO ASDIRECTED 06/28/18 [History] diphenhydrAMINE [Benadryl] 25 mg PO DAILY PRN 12/14/19 [History] Acetaminophen [Tylenol] 650 mg PO Q4H PRN tablet 07/26/20 [Rx] Albuterol Sulfate [Proair Hfa] 1 puff INH QID 14 Days #1 07/26/20 [Rx] Departure - Departure Time of Disposition: 20:08 Disposition: Admitted As Inpatient 67 Condition: Fair Clinical Impression: Hypoxemia Pneumonia Qualifiers: Pneumonia type: due to unspecified organism Laterality: bilateral Lung location: lower lobe of lung Qualified Code(s): J18.9 - Pneumonia, unspecified organism - Discharge Information *PRESCRIPTION DRUG MONITORING PROGRAM REVIEWED*: Not Applicable *COPY OF PRESCRIPTION DRUG MONITORING REPORT IN PATIENT KEITH: Not Applicable <Sandi Nascimentoe - Last Filed: 08/16/20 08:20> ED HPI GENERAL MEDICAL PROBLEM - General Source of Information: Reports: Patient, RN, RN Notes Reviewed History Limitations: Reports: No Limitations - History of Present Illness INITIAL COMMENTS - FREE TEXT/NARRATIVE: Patient presents to the ED via personal vehicle with complaints of shortness of breath. The patient states she tested positive for COVID on 07/22/2020, and subsequently was hospitalized for this infection. She was discharged 07/26/2020 and states she has been fairly well since that time. She has been using an Albuterol rescue inhaler since her discharge for when her breathing became labored. She states her breathing has progressively increased in severity and frequency over the past two days to the point that she feels he albuterol is not working. She denies fever, shaking chills, chest pain, palpitations, vision changes, abdominal pain, nausea, vomiting, or diarrhea. She states she has not taken any additional medications for this problem. She does attest to receiving Dexamethasone as part of her treatment inpatient and [facility]sa send with a prescription as an outpatient. She denies tobacco, alcohol, or recreational substance use. 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 Musculoskeletal History: Reports: Arthritis Neurological History: Reports: None Psychiatric History: Reports: Anxiety Endocrine/Metabolic History: Reports: Diabetes, Type II Hematologic History: Reports: Anemia Immunologic History: Reports: None Oncologic (Cancer) History: Reports: None Dermatologic History: Reports: Other (See Below) Other Dermatologic History: RED RASHY AREA TO L) FT, LOWER LEG - Infectious Disease History Infectious Disease History: Reports: Measles, Novel Coronavirus, Shingles - Past Surgical History Head Surgeries/Procedures: Reports: None HEENT Surgical History: Reports: None, Cataract Surgery Cardiovascular Surgical History: Reports: None Respiratory Surgical History: Reports: None GI Surgical History: Reports: None Female Surgical History: Reports: None Musculoskeletal Surgical History: Reports: None Social & Family History - Family History Family Medical History: Noncontributory - Tobacco Use Tobacco Use Status *Q: Never Tobacco User - Caffeine Use Caffeine Use: Reports: Tea Other Caffeine Use: 12 OZ DAILY - Recreational Drug Use Recreational Drug Use: No - Living Situation & Occupation Living situation: Reports: with Family ED ROS GENERAL - Review of Systems Review Of Systems: Comprehensive ROS is negative, except as noted in HPI. ED EXAM, GENERAL - Physical Exam Exam: See Below Exam Limited By: No Limitations General Appearance: Alert, WD/WN, No Apparent Distress Eye Exam: Bilateral Eye: EOMI, Normal Inspection, PERRL Throat/Mouth: Normal Inspection, Normal Voice, No Airway Compromise Head: Atraumatic, Normocephalic Neck: Normal Inspection, Supple, Non-Tender, Full Range of Motion Respiratory/Chest: Chest Non-Tender, Rales, Accessory Muscle Use Cardiovascular: Normal Peripheral Pulses, Regular Rate, Rhythm, No Edema, No Gallop, No JVD, No Murmur, No Rub Peripheral Pulses: 2+: Radial (L), Radial (R) GI/Abdominal: Normal Bowel Sounds, Soft, Non-Tender, No Distention, No Mass, Pelvis Stable Back Exam: Normal Inspection, Full Range of Motion. No: CVA Tenderness (L), CVA Tenderness (R) Extremities: Normal Inspection, Normal Range of Motion, Non-Tender, No Pedal Edema, Normal Capillary Refill Neurological: Alert, Oriented, CN II-XII Intact, Normal Cognition, No Motor/Sensory Deficits Psychiatric: Normal Affect, Normal Mood Skin Exam: Warm, Dry, Intact, Normal Color, No Rash #1 Interpretation EKG Date: 08/15/20 Time: 17:36 Rhythm: NSR Rate (Beats/Min): 83 [place]: Normal P-Wave: Present QRS: RBBB ST-T: Normal QT: Normal Comparison: No Change (NSR; RBBB; No evidence of acute ischemia) Course - Vital Signs Last Recorded V/S: Last Vital Signs Temp 98.8 F 08/16/20 04:00 Pulse 80 08/16/20 04:00 Resp 20 08/16/20 04:00 BP 130/56 L 08/16/20 04:00 Pulse Ox 94 L 08/16/20 04:00 - Orders/Labs/Meds Orders: Active Orders 24 hr Category Date Time Status CULTURE BLOOD [BC] Stat Lab 08/15/20 17:23 Received Isolation [COMM] Routine Oth 08/15/20 17:15 Active Medication Orders Acetaminophen (Tylenol) 650 mg PO Q4H PRN PRN Reason: Pain (Mild 1-3)/fever Albuterol (Proventil Hfa) 0 gm INH Q4HR PRN PRN Reason: Wheezing Diphenhydramine HCl (Benadryl) 25 mg PO DAILY PRN PRN Reason: Allergies Enoxaparin Sodium (Lovenox) 80 mg SUBCUT Q12HR [facility] Last Admin: 08/15/20 21:48 Dose: 80 mg Documented by: ISHMAEL Furosemide (Lasix) 20 mg IVPUSH BID ADAM Last Admin: 08/15/20 21:50 Dose: 20 mg Documented by: ISHMAEL Azithromycin 500 mg/ Sodium (Chloride) 250 mls @ 250 mls/hr IV Q24H [facility] Last Admin: 08/15/20 21:50 Dose: 250 mls/hr Documented by: ISHMAEL Ceftriaxone Sodium 1 gm/ (Sodium Chloride) 50 mls @ 100 mls/hr IV Q24H [facility] Last Admin: 08/15/20 21:49 Dose: 100 mls/hr Documented by: ISHMAEL Lidocaine (Lidoderm 5%) 700 mg TOP DAILY PRN PRN Reason: Pain Mometasone Furoate/Formoterol Fumar (Dulera 200-5 Mcg) 2 puff IH BIDRT [facility] Ondansetron HCl (Zofran) 4 mg IVPUSH Q8H PRN PRN Reason: Nausea/Vomiting Last Admin: 08/15/20 22:37 Dose: 4 mg Documented by: ISHMAEL Labs: Laboratory Tests 08/15/20 08/15/20 08/15/20 Range/Units 17:23 17:23 17:23 WBC 3.4 L (5.0-10.0) 10^3/uL RBC 4.50 (4.2-5.4) 10^6/uL Hgb 14.5 (12.0-16.0) g/dL Hct 42.4 (37.0-47.0) % MCV 94.2 D (80-100) fL MCH 32.2 (27.0-34.0) pg MCHC 34.2 (33.0-35.0) g/dL Plt Count 177 (150-450) 10^3/uL Neut % (Auto) 53.4 (42.2-75.2) % Lymph % (Auto) 29.9 (20.5-50.1) % [place] % (Auto) 12.8 H (2-8) % Eos % (Auto) 3.0 (1.0-3.0) % Baso % (Auto) 0.9 (0.0-1.0) % D-Dimer, Quantitative (0-400) ng/mL Sodium 136 (136-145) mmol/L Potassium 3.8 (3.5-5.1) mmol/L Chloride 103 (98-107) mmol/L Carbon Dioxide 25 (21-32) mmol/L Anion Gap 11.8 (7-13) mEq/L BUN 7 (7-18) mg/dL Creatinine 0.78 (0.55-1.02) mg/dL Est Cr Clr Drug Dosing 46.25 mL/min Estimated GFR (MDRD) > 60 BUN/Creatinine Ratio 9.0 (No establ ref range) Glucose 97 (74-99) mg/dL Lactic Acid 1.7 (0.4-2.0) mmol/L Calcium 7.9 L (8.5-10.1) mg/dL Phosphorus 2.4 L (2.6-4.7) mg/dL Magnesium 1.9 (1.8-2.4) mg/dL Total Bilirubin 1.2 H (0.2-1.0) mg/dL AST 42 H (15-37) U/L ALT 28 (14-59) U/L Alkaline Phosphatase 87 (46-116) U/L Troponin I < 0.017 (0.000-0.056) ng/mL C-Reactive Protein 3.8 H (0.0-0.9) mg/dL B-Natriuretic Peptide (0-100) pg/ml Total Protein 7.0 (6.4-8.2) g/dL Albumin 2.4 L (3.4-5.0) g/dL Globulin 4.6 Albumin/Globulin Ratio 0.52 08/15/20 08/15/20 Range/Units 17:23 17:23 WBC (5.0-10.0) 10^3/uL RBC (4.2-5.4) 10^6/uL Hgb (12.0-16.0) g/dL Hct (37.0-47.0) % MCV (80-100) fL MCH (27.0-34.0) pg MCHC (33.0-35.0) g/dL Plt Count (150-450) 10^3/uL Neut % (Auto) (42.2-75.2) % Lymph % (Auto) (20.5-50.1) % [place] % (Auto) (2-8) % Eos % (Auto) (1.0-3.0) % Baso % (Auto) (0.0-1.0) % D-Dimer, Quantitative 1910 H (0-400) ng/mL Sodium (136-145) mmol/L Potassium (3.5-5.1) mmol/L Chloride (98-107) mmol/L Carbon Dioxide (21-32) mmol/L Anion Gap (7-13) mEq/L BUN (7-18) mg/dL Creatinine (0.55-1.02) mg/dL Est Cr Clr Drug Dosing mL/min Estimated GFR (MDRD) BUN/Creatinine Ratio (No establ ref range) Glucose (74-99) mg/dL Lactic Acid (0.4-2.0) mmol/L Calcium (8.5-10.1) mg/dL Phosphorus (2.6-4.7) mg/dL Magnesium (1.8-2.4) mg/dL Total Bilirubin (0.2-1.0) mg/dL AST (15-37) U/L ALT (14-59) U/L Alkaline Phosphatase (46-116) U/L Troponin I (0.000-0.056) ng/mL C-Reactive Protein (0.0-0.9) mg/dL B-Natriuretic Peptide 41 (0-100) pg/ml Total Protein (6.4-8.2) g/dL Albumin (3.4-5.0) g/dL Globulin Albumin/Globulin Ratio Meds: Medications Generic Name Dose Route Start Last Admin Trade Name Freq PRN Reason Stop Dose Admin Acetaminophen 650 mg 08/15/20 21:04 Tylenol PO Q4H PRN Pain (Mild 1-3)/fever Albuterol 0 gm 08/15/20 21:09 Proventil Hfa INH Q4HR PRN Wheezing Diphenhydramine HCl 25 mg 08/15/20 21:04 Benadryl PO DAILY PRN Allergies Enoxaparin Sodium 80 mg 08/15/20 21:00 08/15/20 21:48 Lovenox SUBCUT 80 mg Q12HR ADAM Administration Furosemide 20 mg 08/15/20 21:15 08/15/20 21:50 Lasix IVPUSH 20 mg BID ADAM Administration Azithromycin 500 mg/ Sodium 250 mls @ 250 mls/hr 08/15/20 22:00 08/15/20 21:50 Chloride IV 250 mls/hr Q24H ADAM Administration Ceftriaxone Sodium 1 gm/ 50 mls @ 100 mls/hr 08/15/20 21:00 08/15/20 21:49 Sodium Chloride IV 100 mls/hr Q24H ADAM Administration Lidocaine 700 mg 08/15/20 21:04 Lidoderm 5% TOP DAILY PRN Pain Mometasone Furoate/Formoterol Fumar 2 puff 08/16/20 07:00 Dulera 200-5 Mcg IH BIDRT ADAM Ondansetron HCl 4 mg 08/15/20 22:14 08/15/20 22:37 Zofran IVPUSH 4 mg Q8H PRN Administration Nausea/Vomiting Discontinued Medications Generic Name Dose Route Start Last Admin Trade Name Jose Luis PRN Reason Stop Dose Admin Iopamidol 100 ml 08/15/20 19:31 08/15/20 20:32 Isovue-370 (76%) IVPUSH 08/15/20 19:32 75 ml ONETIME ONE Administration - Radiology Interpretation Free Text/Narrative:: [facility] Final Radiology Report Call: [phone] assistance Online chat: [email or web address] Name: BETI FARRIS Age: 80Years F Date: 08/15/2020 SSN: -- : [id number] Study: CR CHEST 1V FRONTAL Requesting Physician: Sandi Nascimento Images: 1 Addl Studies: Provided Clinical History: Chest pain Contrast: Contrast Medium: Contrast Amount: Contrast Method: CONFIDENTIALITY STATEMENT This report is intended only for use by the referring physician, and only in accordance with law. If you received this in error, call [phone]. Page 1 of 1 PROCEDURE INFORMATION: Exam: XR Chest, 1 View Exam date and time: 08/15/2020 5:44 PM Age: 80 years old Clinical indication: Chest pain; Type not specified TECHNIQUE: Imaging protocol: XR of the chest Views: 1 view. COMPARISON: CR Chest 1V Frontal 07/22/2020 9:05 PM FINDINGS: Lungs: Patchy predominantly peripheral bilateral ground-glass opacities. . Pleural space: Unremarkable. No pleural effusion. No pneumothorax. Heart/Mediastinum: Heart is borderline enlarged. Bones/joints: Unremarkable. IMPRESSION: Bilateral predominantly peripheral ground-glass lung opacities suggesting a multifocal pneumonia. This appearance can be seen with atypical infections such as COVID-19. Correlate. Thank you for allowing us to participate in the care of your patient. Dictated and Authenticated by: Esequiel Hilton MD 08/15/2020 6:16 PM Central Time ([place] & [place]) Sepsis Event Note (ED) - Evaluation Sepsis Screening Result: No Definite Risk - My Orders Last 24 Hours: My Active Orders 08/15/20 17:15 Isolation [COMM] Routine 08/15/20 17:23 CULTURE BLOOD [BC] Stat - Assessment/Plan Last 24 Hours: My Active Orders 08/15/20 17:15 Isolation [COMM] Routine 08/15/20 17:23 CULTURE BLOOD [BC] Stat
[2020-08-15] MEDS ORDERED: Iopamidol 755 Mg/ML 100 ML Bottle IVPUSH ONE (19:31)
--- NOTE | 2020-08-15 19:49 | CT ---
PROCEDURE INFORMATION: Exam: CT Chest With Contrast Exam date and time: 08/15/2020 7:06 PM Age: 80 years old Clinical indication: Chest pain; Type not specified; Additional info: Shortness of breath; Rule out pe TECHNIQUE: Imaging protocol: Computed tomography of the chest with intravenous contrast. Radiation optimization: All CT scans at this facility use at least one of these dose optimization techniques: automated exposure control; mA and/or kV adjustment per patient size (includes targeted exams where dose is matched to clinical indication); or iterative reconstruction. Contrast material: [id number]; Contrast volume: 75 ml; Contrast route: INTRAVENOUS (IV); COMPARISON: CT Chest wo Cont 11/07/2014 11:13 AM FINDINGS: Lungs: Bilateral multifocal predominantly peripheral ground-glass as well as more consolidative airspace lung opacities. Interstitial lung abnormality most pronounced at the lung bases. Pleural space: Unremarkable. No pneumothorax. No pleural effusion. Heart: Very minimal coronary artery calcifications. Aorta: Unremarkable. No aortic aneurysm. Lymph nodes: Scattered nonenlarged to borderline sized mediastinal and hilar lymph nodes. Bones/joints: Unremarkable. No acute fracture. Soft tissues: Unremarkable. IMPRESSION: 1. Bilateral multifocal predominantly peripheral ground-glass opacities as well as interstitial abnormality most pronounced at the lung bases. Findings may reflect bilateral multifocal pneumonia/pneumonitis possibly superimposed on chronic lung change. Correlate for underlying infection including atypical infections. 2. No evidence for acute pulmonary embolus. 3. Multiple small to borderline sized thoracic lymph nodes may be reactive.
[2020-08-15] MEDS ORDERED: Lidocaine 5% 700 MG Patch TOP PRN (21:04)
[2020-08-15] MEDS ORDERED: diphenhydrAMINE 25 MG Tab PO PRN (21:04)
[2020-08-15] MEDS ORDERED: Albuterol 6.7 GM Inhaler INH PRN (21:09)
--- NOTE | 2020-08-15 21:25 | PCM.HP ---
H&P History of Present Illness - General Date of Service: 08/15/20 Admit Problem/Dx: Admission Diagnosis/Problem Admission Diagnosis/Problem Pneumonia Source of Information: Patient - History of Present Illness Initial Comments - Free Text/Narative: 80-year-old lady who has a history of previous Covid 19 infection in the middle July. That time she was hospitalized mostly for GI symptoms. Was treated with remdesivir and steroids. The patient presented with increasing shortness of breath in the past 2 days prior to admission. Albuterol inhaler did not help. Had fever up to 101. Has been checking oxygen saturations at home and it has been running as low as 85-87 on room air. No associated chest pain, abdominal pain, diarrhea. No apparent sick contact but she was out shopping, met with family, came to the clinic earlier. - Related Data Allergies/Adverse Reactions: Allergies Allergy/AdvReac Type Severity Reaction Status Date / Time codeine Allergy Unknown Nausea and Verified 08/15/20 17:13 Vomiting tramadol Allergy Unknown Nausea and Verified 08/15/20 17:13 Vomiting Home Medications: Home Meds Lidocaine 5% [Lidoderm 5%] 1 patch TOP DAILY PRN 06/23/18 [History] Sodium Chloride [Saline Nasal [place]] 1 spray NASBOTH ASDIRECTED PRN 06/23/18 [History] Acetaminophen [Tylenol Arthritis Pain] 2 tab PO ASDIRECTED 06/28/18 [History] diphenhydrAMINE [Benadryl] 25 mg PO DAILY PRN 12/14/19 [History] Acetaminophen [Tylenol] 650 mg PO Q4H PRN tablet 07/26/20 [Rx] Albuterol Sulfate [Proair Hfa] 1 puff INH QID 14 Days #1 07/26/20 [Rx] Past Medical History - Past Health History Medical/Surgical History: Denies Medical/Surgical History HEENT History: Reports: Allergic Rhinitis, Cataract Cardiovascular History: Reports: None Respiratory History: Reports: Asthma Gastrointestinal History: Reports: None Genitourinary History: Reports: None 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: , 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 Musculoskeletal History: Reports: Arthritis Neurological History: Reports: None Psychiatric History: Reports: Anxiety Endocrine/Metabolic History: Reports: Diabetes, Type II Hematologic History: Reports: Anemia Immunologic History: Reports: None Oncologic (Cancer) History: Reports: None Dermatologic History: Reports: Other (See Below) Other Dermatologic History: RED RASHY AREA TO L) FT, LOWER LEG - Infectious Disease History Infectious Disease History: Reports: Measles, Novel Coronavirus, Shingles - Past Surgical History Head Surgeries/Procedures: Reports: None HEENT Surgical History: Reports: None, Cataract Surgery Cardiovascular Surgical History: Reports: None Respiratory Surgical History: Reports: None GI Surgical History: Reports: None Female Surgical History: Reports: None Musculoskeletal Surgical History: Reports: None Social & Family History - Family History Family Medical History: Noncontributory - Tobacco Use Tobacco Use Status *Q: Never Tobacco User - Caffeine Use Caffeine Use: Reports: Tea Other Caffeine Use: 12 OZ DAILY - Recreational Drug Use Recreational Drug Use: No - Living Situation & Occupation Living situation: Reports: with Family H&P Review of Systems - Review of Systems: Review Of Systems: See Below General: Reports: Fever, Chills, Weakness Pulmonary: Reports: Shortness of Breath, Cough (with minimal sputum) Cardiovascular: Denies: Chest Pain Gastrointestinal: Denies: Abdominal Pain Genitourinary: Denies: Dysuria Psychiatric: Denies: Confusion Exam - Exam Exam: See Below - Vital Signs Vital Signs: Last Vital Signs Temp 99.6 F 08/15/20 16:56 Pulse 88 08/15/20 16:56 Resp 18 08/15/20 16:56 BP 104/54 L 08/15/20 16:56 Pulse Ox 99 08/15/20 17:45 Weight: 150 lb - Exam Quality Assessment: Supplemental Oxygen General: Alert, Oriented Neck: Supple Lungs: Rhonchi (bilateral basilar rhonchi). No: Wheezing Cardiovascular: Regular Rate, Regular Rhythm GI/Abdominal Exam: Normal Bowel Sounds, Soft, Non-Tender Extremities: No Pedal Edema - Patient Data Lab Results Last 24 hrs: Laboratory Results - last 24 hr 08/15/20 08/15/20 08/15/20 Range/Units 17:23 17:23 17:23 WBC 3.4 L (5.0-10.0) 10^3/uL RBC 4.50 (4.2-5.4) 10^6/uL Hgb 14.5 (12.0-16.0) g/dL Hct 42.4 (37.0-47.0) % MCV 94.2 D (80-100) fL MCH 32.2 (27.0-34.0) pg MCHC 34.2 (33.0-35.0) g/dL Plt Count 177 (150-450) 10^3/uL Neut % (Auto) 53.4 (42.2-75.2) % Lymph % (Auto) 29.9 (20.5-50.1) % [place] % (Auto) 12.8 H (2-8) % Eos % (Auto) 3.0 (1.0-3.0) % Baso % (Auto) 0.9 (0.0-1.0) % D-Dimer, Quantitative (0-400) ng/mL Sodium 136 (136-145) mmol/L Potassium 3.8 (3.5-5.1) mmol/L Chloride 103 (98-107) mmol/L Carbon Dioxide 25 (21-32) mmol/L Anion Gap 11.8 (7-13) mEq/L BUN 7 (7-18) mg/dL Creatinine 0.78 (0.55-1.02) mg/dL Est Cr Clr Drug Dosing 46.25 mL/min Estimated GFR (MDRD) > 60 BUN/Creatinine Ratio 9.0 (No establ ref range) Glucose 97 (74-99) mg/dL Lactic Acid 1.7 (0.4-2.0) mmol/L Calcium 7.9 L (8.5-10.1) mg/dL Phosphorus 2.4 L (2.6-4.7) mg/dL Magnesium 1.9 (1.8-2.4) mg/dL Total Bilirubin 1.2 H (0.2-1.0) mg/dL AST 42 H (15-37) U/L ALT 28 (14-59) U/L Alkaline Phosphatase 87 (46-116) U/L Troponin I < 0.017 (0.000-0.056) ng/mL C-Reactive Protein 3.8 H (0.0-0.9) mg/dL Total Protein 7.0 (6.4-8.2) g/dL Albumin 2.4 L (3.4-5.0) g/dL Globulin 4.6 Albumin/Globulin Ratio 0.52 SARS CoV-2 RNA Rapid KALLIE (NEGATIVE) 08/15/20 08/15/20 Range/Units 17:23 20:07 WBC (5.0-10.0) 10^3/uL RBC (4.2-5.4) 10^6/uL Hgb (12.0-16.0) g/dL Hct (37.0-47.0) % MCV (80-100) fL MCH (27.0-34.0) pg MCHC (33.0-35.0) g/dL Plt Count (150-450) 10^3/uL Neut % (Auto) (42.2-75.2) % Lymph % (Auto) (20.5-50.1) % [place] % (Auto) (2-8) % Eos % (Auto) (1.0-3.0) % Baso % (Auto) (0.0-1.0) % D-Dimer, Quantitative 1910 H (0-400) ng/mL Sodium (136-145) mmol/L Potassium (3.5-5.1) mmol/L Chloride (98-107) mmol/L Carbon Dioxide (21-32) mmol/L Anion Gap (7-13) mEq/L BUN (7-18) mg/dL Creatinine (0.55-1.02) mg/dL Est Cr Clr Drug Dosing mL/min Estimated GFR (MDRD) BUN/Creatinine Ratio (No establ ref range) Glucose (74-99) mg/dL Lactic Acid (0.4-2.0) mmol/L Calcium (8.5-10.1) mg/dL Phosphorus (2.6-4.7) mg/dL Magnesium (1.8-2.4) mg/dL Total Bilirubin (0.2-1.0) mg/dL AST (15-37) U/L ALT (14-59) U/L Alkaline Phosphatase (46-116) U/L Troponin I (0.000-0.056) ng/mL C-Reactive Protein (0.0-0.9) mg/dL Total Protein (6.4-8.2) g/dL Albumin (3.4-5.0) g/dL Globulin Albumin/Globulin Ratio SARS CoV-2 RNA Rapid KALLIE Negative (NEGATIVE) Result Diagrams: 08/15/20 17:23 08/15/20 17:23 Aaron Results Last 24 hrs: Microbiology 08/15/20 18:05 Influenza Type A Antigen Screen - Final Nasal, Unspecified NEGATIVE INFLUENZA A VIRUS AG REFERENCE RANGE: NEGATIVE Influenza Type B Antigen Screen - Final NEGATIVE INFLUENZA B VIRUS AG REFERENCE RANGE: NEGATIVE - Problem List (1) Hypoxemia SNOMED Code(s): 974897574 ICD Code: R09.02 - HYPOXEMIA Status: Acute Current Visit: No (2) Pneumonia SNOMED Code(s): 437046725 ICD Code: J18.9 - PNEUMONIA, UNSPECIFIED ORGANISM Status: Acute Current Visit: No Qualifiers: Pneumonia type: due to unspecified organism Laterality: bilateral Lung location: lower lobe of lung Qualified Code(s): J18.9 - Pneumonia, unspecified organism Problem List Initiated/Reviewed/Updated: Yes Orders Last 24hrs: Active Orders 24 hr Category Date Time Status Admission Diagnosis [ADT] Stat ADT 08/15/20 20:06 Ordered Admission Status [Patient Status] [ADT] Routine ADT 08/15/20 20:06 Active RT Post Treatment Assessment [RC] Click to Edit Care 08/15/20 21:09 Ordered RT Pre-Treatment Assessment [RC] Click to Edit Care 08/15/20 21:09 Ordered CV Arterial Duplex Legs Bi [US] Routine Exams 08/15/20 21:03 Ordered B-TYPE NATRIURETIC PEPTIDE,BNP [CHEM] AM Lab 08/16/20 05:11 Ordered B-TYPE NATRIURETIC PEPTIDE,BNP [CHEM] Urgent Lab 08/15/20 20:57 Ordered BASIC METABOLIC PANEL,BMP [CHEM] AM Lab 08/17/20 05:11 Ordered BASIC METABOLIC PANEL,BMP [CHEM] AM Lab 08/18/20 05:11 Ordered BASIC METABOLIC PANEL,BMP [CHEM] AM Lab 08/19/20 05:11 Ordered BASIC METABOLIC PANEL,BMP [CHEM] AM Lab 08/20/20 05:11 Ordered BASIC METABOLIC PANEL,BMP [CHEM] AM Lab 08/21/20 05:11 Ordered CBC WITH AUTO DIFF [HEME] AM Lab 08/17/20 05:11 Ordered CBC WITH AUTO DIFF [HEME] AM Lab 08/18/20 05:11 Ordered CBC WITH AUTO DIFF [HEME] AM Lab 08/19/20 05:11 Ordered CBC WITH AUTO DIFF [HEME] AM Lab 08/20/20 05:11 Ordered CBC WITH AUTO DIFF [HEME] AM Lab 08/21/20 05:11 Ordered CULTURE BLOOD [BC] Stat Lab 11/06/20 17:23 Received CULTURE SPUTUM + SMEAR [RM] Routine Lab 08/15/20 20:57 Ordered DD [D-DIMER QUANTITATIVE] [COAG] AM Lab 08/16/20 05:11 Ordered DD [D-DIMER QUANTITATIVE] [COAG] AM Lab 08/17/20 05:11 Ordered DD [D-DIMER QUANTITATIVE] [COAG] AM Lab 08/18/20 05:11 Ordered DD [D-DIMER QUANTITATIVE] [COAG] AM Lab 08/19/20 05:11 Ordered DD [D-DIMER QUANTITATIVE] [COAG] AM Lab 08/20/20 05:11 Ordered PROCALCITONIN [REF] Urgent Lab 08/15/20 20:57 Ordered TROPONIN I [CHEM] AM Lab 08/16/20 05:11 Ordered Acetaminophen [TylenoL] Med 08/15/20 21:04 Ordered 650 mg PO Q4H PRN Albuterol [Proventil HFA] Med 08/15/20 21:09 Ordered 2 puff INH Q4HR PRN Azithromycin [Zithromax] 500 mg Med 08/15/20 21:00 Ordered Sodium Chloride 0.9% [Normal Saline (AdvBag)] 250 ml IV Q24H Enoxaparin [Lovenox] Med 08/15/20 21:00 Ordered 80 mg SUBCUT Q12HR Furosemide [Lasix] Med 08/15/20 21:15 Ordered 20 mg IVPUSH BID Lidocaine 5% [Lidoderm 5%] Med 08/15/20 21:04 Ordered 1 patch TOP DAILY PRN Mometasone/Formoterol [Dulera 200-5 MCG] Med 08/16/20 07:00 Ordered 2 puff IH BIDRT cefTRIAXone [Rocephin] 1 gm Med 08/15/20 21:00 Ordered Sodium Chloride 0.9% [Normal Saline] 50 ml IV Q24H diphenhydrAMINE [Benadryl] Med 08/15/20 21:04 Ordered 25 mg PO DAILY PRN Isolation [COMM] Routine Oth 08/15/20 17:15 Active Medication Orders Acetaminophen (Tylenol) 650 mg PO Q4H PRN PRN Reason: Pain (Mild 1-3)/fever Albuterol (Proventil Hfa) 0 gm INH Q4HR PRN PRN Reason: Wheezing Diphenhydramine HCl (Benadryl) 25 mg PO DAILY PRN PRN Reason: Allergies Enoxaparin Sodium (Lovenox) 80 mg SUBCUT Q12HR ADAM Furosemide (Lasix) 20 mg IVPUSH BID [facility] Azithromycin 500 mg/ Sodium (Chloride) 250 mls @ 250 mls/hr IV Q24H ADAM Ceftriaxone Sodium 1 gm/ (Sodium Chloride) 50 mls @ 100 mls/hr IV Q24H [facility] [place] Lidocaine (Lidoderm 5%) 700 mg TOP DAILY PRN PRN Reason: Pain Mometasone Furoate/Formoterol Fumar (Dulera 200-5 Mcg) 2 puff IH BIDRT [facility] Assessment/Plan Comment:: 80-year-old lady who has a history of previous Covid 19 infection in the middle July. That time she was hospitalized mostly for GI symptoms. Was treated with remdesivir and steroids. The patient presented with increasing shortness of breath in the past 2 days prior to admission. Albuterol inhaler did not help. Had fever up to 101. Has been checking oxygen saturations at home and it has been running as low as 85-87 on room air. No associated chest pain, abdominal pain, diarrhea. No apparent sick contact but she was out shopping, met with family, came to the clinic earlier. Acute hypoxemic respiratory failure We will supplement oxygen as needed Abnormal chest x-ray The diffuse bilateral pulmonary opacities are typical for Covid. The patient had Covid infection earlier, tested negative for Covid this time. This is likely secondary to prior Covid infection Less likely new Covid infection. Might represent acute non-Covid viral or bacterial pneumonia. We will obtain sputum culture, blood culture, empirically treat with ceftriaxone and azithromycin Will treat with dulera, albuterol as needed Might represent acute congestive heart failure Obtain BNP, we will diurese the patient, monitor electrolytes and renal function Elevated d-dimer This might be secondary to recent Covid infection High risk for DVT, pulmonary embolism, thrombotic complications of Covid 19 infection Will obtain lower extremity ultrasound to rule out DVT Start therapeutic anticoagulation with Lovenox consider repeating CT with contrast if ultrasound of the leg is negative Follow d-dimer daily
[2020-08-15] MEDS: Enoxaparin 80 MG/0.8 ML Syringe SUBCUT SCH (21:48)
[2020-08-15] MEDS: cefTRIAXone 1 GM in Sodium Chloride 0.9% 50 ML IV SCH (21:49)
[2020-08-15] MEDS: Furosemide 40 MG/4 ML VIAL IVPUSH SCH (21:50)
[2020-08-15] MEDS: Azithromycin 500 MG in Sodium Chloride 0.9% 250 ML IV SCH (21:50)
[2020-08-15] MEDS: Ondansetron 4 MG/2 ML SDV IVPUSH PRN (22:37)
[2020-08-16] MEDS: Formoterol/Mometasone 200-5 MCG 8.8 GM Inhaler IH SCH ×2 (10:47→18:52)
[2020-08-16] MEDS: Enoxaparin 80 MG/0.8 ML Syringe SUBCUT SCH ×2 (10:48→21:44)
[2020-08-16] MEDS: Furosemide 40 MG/4 ML VIAL IVPUSH SCH (10:49)
--- NOTE | 2020-08-16 11:27 | PCM.PN ---
- General Info Date of Service: 08/16/20 Admission Dx/Problem (Free Text): Admission Diagnosis/Problem Admission Diagnosis/Problem Pneumonia Subjective Update: feeling okay, still have cough with some sputum production Shortness of breath is better On oxygen No abdominal pain, no nausea, no diarrhea Functional Status: Reports: Pain Controlled, Tolerating Diet - Review of Systems General: Reports: Weakness. Denies: Fever Pulmonary: Reports: Shortness of Breath, Cough, Sputum. Denies: Wheezing Cardiovascular: Denies: Chest Pain, Edema Neurological: Denies: Confusion Psychiatric: Denies: Confusion, Anxiety - Patient Data Vitals - Most Recent: Last Vital Signs Temp 99.4 F 08/16/20 08:00 Pulse 64 08/16/20 08:00 Resp 20 08/16/20 08:00 BP 97/44 L 08/16/20 08:00 Pulse Ox 97 08/16/20 08:00 Weight - Most Recent: 150 lb I&O - Last 24 Hours: Intake & Output 08/15/20 08/16/20 08/16/20 22:59 06:59 14:59 Intake Total 250 100 Balance 250 100 Lab Results Last 24 Hours: Laboratory Results - last 24 hr 08/15/20 08/15/20 08/15/20 Range/Units 17:23 17:23 17:23 WBC 3.4 L (5.0-10.0) 10^3/uL RBC 4.50 (4.2-5.4) 10^6/uL Hgb 14.5 (12.0-16.0) g/dL Hct 42.4 (37.0-47.0) % MCV 94.2 D (80-100) fL MCH 32.2 (27.0-34.0) pg MCHC 34.2 (33.0-35.0) g/dL Plt Count 177 (150-450) 10^3/uL Neut % (Auto) 53.4 (42.2-75.2) % Lymph % (Auto) 29.9 (20.5-50.1) % [place] % (Auto) 12.8 H (2-8) % Eos % (Auto) 3.0 (1.0-3.0) % Baso % (Auto) 0.9 (0.0-1.0) % D-Dimer, Quantitative (0-400) ng/mL Sodium 136 (136-145) mmol/L Potassium 3.8 (3.5-5.1) mmol/L Chloride 103 (98-107) mmol/L Carbon Dioxide 25 (21-32) mmol/L Anion Gap 11.8 (7-13) mEq/L BUN 7 (7-18) mg/dL Creatinine 0.78 (0.55-1.02) mg/dL Est Cr Clr Drug Dosing 46.25 mL/min Estimated GFR (MDRD) > 60 BUN/Creatinine Ratio 9.0 (No establ ref range) Glucose 97 (74-99) mg/dL Lactic Acid 1.7 (0.4-2.0) mmol/L Calcium 7.9 L (8.5-10.1) mg/dL Phosphorus 2.4 L (2.6-4.7) mg/dL Magnesium 1.9 (1.8-2.4) mg/dL Total Bilirubin 1.2 H (0.2-1.0) mg/dL AST 42 H (15-37) U/L ALT 28 (14-59) U/L Alkaline Phosphatase 87 (46-116) U/L Troponin I < 0.017 (0.000-0.056) ng/mL C-Reactive Protein 3.8 H (0.0-0.9) mg/dL B-Natriuretic Peptide (0-100) pg/ml Total Protein 7.0 (6.4-8.2) g/dL Albumin 2.4 L (3.4-5.0) g/dL Globulin 4.6 Albumin/Globulin Ratio 0.52 SARS CoV-2 RNA Rapid KALLIE (NEGATIVE) 08/15/20 08/15/20 08/15/20 Range/Units 17:23 17:23 20:07 WBC (5.0-10.0) 10^3/uL RBC (4.2-5.4) 10^6/uL Hgb (12.0-16.0) g/dL Hct (37.0-47.0) % MCV (80-100) fL MCH (27.0-34.0) pg MCHC (33.0-35.0) g/dL Plt Count (150-450) 10^3/uL Neut % (Auto) (42.2-75.2) % Lymph % (Auto) (20.5-50.1) % [place] % (Auto) (2-8) % Eos % (Auto) (1.0-3.0) % Baso % (Auto) (0.0-1.0) % D-Dimer, Quantitative 1910 H (0-400) ng/mL Sodium (136-145) mmol/L Potassium (3.5-5.1) mmol/L Chloride (98-107) mmol/L Carbon Dioxide (21-32) mmol/L Anion Gap (7-13) mEq/L BUN (7-18) mg/dL Creatinine (0.55-1.02) mg/dL Est Cr Clr Drug Dosing mL/min Estimated GFR (MDRD) BUN/Creatinine Ratio (No establ ref range) Glucose (74-99) mg/dL Lactic Acid (0.4-2.0) mmol/L Calcium (8.5-10.1) mg/dL Phosphorus (2.6-4.7) mg/dL Magnesium (1.8-2.4) mg/dL Total Bilirubin (0.2-1.0) mg/dL AST (15-37) U/L ALT (14-59) U/L Alkaline Phosphatase (46-116) U/L Troponin I (0.000-0.056) ng/mL C-Reactive Protein (0.0-0.9) mg/dL B-Natriuretic Peptide 41 (0-100) pg/ml Total Protein (6.4-8.2) g/dL Albumin (3.4-5.0) g/dL Globulin Albumin/Globulin Ratio SARS CoV-2 RNA Rapid KALLIE Negative (NEGATIVE) 08/16/20 08/16/20 Range/Units 06:16 06:16 WBC (5.0-10.0) 10^3/uL RBC (4.2-5.4) 10^6/uL Hgb (12.0-16.0) g/dL Hct (37.0-47.0) % MCV (80-100) fL MCH (27.0-34.0) pg MCHC (33.0-35.0) g/dL Plt Count (150-450) 10^3/uL Neut % (Auto) (42.2-75.2) % Lymph % (Auto) (20.5-50.1) % [place] % (Auto) (2-8) % Eos % (Auto) (1.0-3.0) % Baso % (Auto) (0.0-1.0) % D-Dimer, Quantitative 1820 H (0-400) ng/mL Sodium (136-145) mmol/L Potassium (3.5-5.1) mmol/L Chloride (98-107) mmol/L Carbon Dioxide (21-32) mmol/L Anion Gap (7-13) mEq/L BUN (7-18) mg/dL Creatinine (0.55-1.02) mg/dL Est Cr Clr Drug Dosing mL/min Estimated GFR (MDRD) BUN/Creatinine Ratio (No establ ref range) Glucose (74-99) mg/dL Lactic Acid (0.4-2.0) mmol/L Calcium (8.5-10.1) mg/dL Phosphorus (2.6-4.7) mg/dL Magnesium (1.8-2.4) mg/dL Total Bilirubin (0.2-1.0) mg/dL AST (15-37) U/L ALT (14-59) U/L Alkaline Phosphatase (46-116) U/L Troponin I < 0.017 (0.000-0.056) ng/mL C-Reactive Protein (0.0-0.9) mg/dL B-Natriuretic Peptide 32 (0-100) pg/ml Total Protein (6.4-8.2) g/dL Albumin (3.4-5.0) g/dL Globulin Albumin/Globulin Ratio SARS CoV-2 RNA Rapid KALLIE (NEGATIVE) Aaron Results Last 24 Hours: Microbiology 08/15/20 18:05 Influenza Type A Antigen Screen - Final Nasal, Unspecified NEGATIVE INFLUENZA A VIRUS AG REFERENCE RANGE: NEGATIVE Influenza Type B Antigen Screen - Final NEGATIVE INFLUENZA B VIRUS AG REFERENCE RANGE: NEGATIVE Med Orders - Current: Current Medications Acetaminophen (Tylenol) 650 mg PO Q4H PRN PRN Reason: Pain (Mild 1-3)/fever Albuterol (Proventil Hfa) 0 gm INH Q4HR PRN PRN Reason: Wheezing Diphenhydramine HCl (Benadryl) 25 mg PO DAILY PRN PRN Reason: Allergies Enoxaparin Sodium (Lovenox) 80 mg SUBCUT Q12HR ADAM Last Admin: 08/16/20 10:48 Dose: 80 mg Documented by: Furosemide (Lasix) 20 mg IVPUSH BID [facility] Last Admin: 08/16/20 10:49 Dose: 20 mg Documented by: Azithromycin 500 mg/ Sodium (Chloride) 250 mls @ 250 mls/hr IV Q24H [facility] Last Admin: 08/15/20 21:50 Dose: 250 mls/hr Documented by: Ceftriaxone Sodium 1 gm/ (Sodium Chloride) 50 mls @ 100 mls/hr IV Q24H [facility] Last Admin: 08/15/20 21:49 Dose: 100 mls/hr Documented by: Lidocaine (Lidoderm 5%) 700 mg TOP DAILY PRN PRN Reason: Pain Mometasone Furoate/Formoterol Fumar (Dulera 200-5 Mcg) 2 puff IH BIDRT [facility] Last Admin: 08/16/20 10:47 Dose: 2 puff Documented by: Ondansetron HCl (Zofran) 4 mg IVPUSH Q8H PRN PRN Reason: Nausea/Vomiting Last Admin: 08/15/20 22:37 Dose: 4 mg Documented by: Discontinued Medications Iopamidol (Isovue-370 (76%)) 100 ml IVPUSH ONETIME ONE Stop: 08/15/20 19:32 Last Admin: 08/15/20 20:32 Dose: 75 ml Documented by: - Exam Quality Assessment: Supplemental Oxygen General: Alert, Oriented Neck: Supple Lungs: Normal Respiratory Effort, Crackles. No: Wheezing Cardiovascular: Regular Rate, Regular Rhythm GI/Abdominal Exam: Normal Bowel Sounds, Soft, Non-Tender Extremities: No Pedal Edema Neurological: No New Focal Deficit Psy/Mental Status: Alert, Normal Affect, Normal Mood Sepsis Event Note - Evaluation Sepsis Screening Result: No Definite Risk - Focused Exam Vital Signs: Vital Signs Temp Pulse Resp BP BP Pulse Ox 08/16/20 08:00 99.4 F 64 20 97/44 L 97 08/16/20 04:00 98.8 F 80 20 130/56 L 94 L 08/16/20 00:00 20 95 - Problem List & Annotations (1) Hypoxemia SNOMED Code(s): 760440019 Code(s): R09.02 - HYPOXEMIA Status: Acute Current Visit: No (2) Pneumonia SNOMED Code(s): 355193703 Code(s): J18.9 - PNEUMONIA, UNSPECIFIED ORGANISM Status: Acute Current Visit: No Qualifiers: Pneumonia type: due to unspecified organism Laterality: bilateral Lung location: lower lobe of lung Qualified Code(s): J18.9 - Pneumonia, unspecified organism - Problem List Review Problem List Initiated/Reviewed/Updated: Yes - My Orders Last 24 Hours: My Active Orders 08/15/20 17:23 PROCALCITONIN [REF] Urgent 08/15/20 20:57 CULTURE SPUTUM + SMEAR [RM] Routine 08/15/20 21:00 Enoxaparin [Lovenox] 80 mg SUBCUT Q12HR cefTRIAXone [Rocephin] 1 gm Sodium Chloride 0.9% [Normal Saline] 50 ml IV Q24H 08/15/20 21:03 CV Arterial Duplex Legs Bi [US] Routine 08/15/20 21:04 Acetaminophen [TylenoL] 650 mg PO Q4H PRN Lidocaine 5% [Lidoderm 5%] 700 mg TOP DAILY PRN diphenhydrAMINE [Benadryl] 25 mg PO DAILY PRN 08/15/20 21:09 RT Post Treatment Assessment [RC] Click to Edit RT Pre-Treatment Assessment [RC] Click to Edit Albuterol [Proventil HFA] 0 gm INH Q4HR PRN 08/15/20 21:15 Furosemide [Lasix] 20 mg IVPUSH BID 08/15/20 22:00 Azithromycin [Zithromax] 500 mg Sodium Chloride 0.9% [Normal Saline (AdvBag)] 250 ml IV Q24H 08/15/20 22:14 Ondansetron [Zofran] 4 mg IVPUSH Q8H PRN 08/15/20 22:54 Up ad Corie [RC] ASDIRECTED 08/15/20 22:56 Code Status [Resuscitation Status] Routine 08/16/20 02:16 Flutter Valve Therapy [RT Chest Physiotherapy] [RC] Q1HWA Incentive Spirometry [RT Incentive Spirometry] [RC] Q1HWA 08/16/20 07:00 Mometasone/Formoterol [Dulera 200-5 MCG] 2 puff IH BIDRT 08/16/20 Breakfast Regular Diet [DIET] 08/16/20 11:24 Chest PE [Ang Chest] [CT] Routine 08/17/20 05:11 BASIC METABOLIC PANEL,BMP [CHEM] AM CBC WITH AUTO DIFF [HEME] AM DD [D-DIMER QUANTITATIVE] [COAG] AM 08/18/20 05:11 BASIC METABOLIC PANEL,BMP [CHEM] AM CBC WITH AUTO DIFF [HEME] AM DD [D-DIMER QUANTITATIVE] [COAG] AM 08/19/20 05:11 BASIC METABOLIC PANEL,BMP [CHEM] AM CBC WITH AUTO DIFF [HEME] AM DD [D-DIMER QUANTITATIVE] [COAG] AM 08/20/20 05:11 BASIC METABOLIC PANEL,BMP [CHEM] AM CBC WITH AUTO DIFF [HEME] AM DD [D-DIMER QUANTITATIVE] [COAG] AM 08/21/20 05:11 BASIC METABOLIC PANEL,BMP [CHEM] AM CBC WITH AUTO DIFF [HEME] AM - Plan Plan:: 80-year-old lady who has a history of previous Covid 19 infection in the middle July. That time she was hospitalized mostly for GI symptoms. Was treated with remdesivir and steroids. The patient presented with increasing shortness of breath in the past 2 days prior to admission. Albuterol inhaler did not help. Had fever up to 101. Has been checking oxygen saturations at home and it has been running as low as 85-87 on room air. No associated chest pain, abdominal pain, diarrhea. No apparent sick contact but she was out shopping, met with family, came to the clinic earlier. Acute hypoxemic respiratory failure We will supplement oxygen as needed Abnormal chest x-ray The diffuse bilateral pulmonary opacities are typical for Covid. The patient had Covid infection earlier, tested negative for Covid this time. This is likely secondary to prior Covid infection Less likely new Covid infection. Might represent acute non-Covid viral or bacterial pneumonia. pending sputum culture, blood culture, procalcitonin empirically treat with ceftriaxone and azithromycin Will treat with dulera, albuterol as needed less likely acute congestive heart failure - BNP is low - stop diuretics Elevated d-dimer This might be secondary to recent Covid infection High risk for DVT, pulmonary embolism, thrombotic complications of Covid 19 infection Will obtain lower extremity ultrasound to rule out DVT obtain ct chest r/o PE cont therapeutic anticoagulation with Lovenox Follow d-dimer daily
[2020-08-16] MEDS: Acetaminophen 325 MG Tab PO PRN ×2 (17:34→22:21)
--- NOTE | 2020-08-16 17:37 | US ---
PROCEDURE INFORMATION: Exam: US Duplex Lower Extremity Veins, Bilateral Exam date and time: 08/16/2020 4:50 PM Age: 80 years old Clinical indication: Abnormal findings; Abnormal lab test; Elevated d-dimer; Additional info: Elevated ddimer 1850, post covid-19, pneumonia TECHNIQUE: Imaging protocol: Real-time duplex ultrasound of the extremities with 2-D fernandez scale, color Doppler flow and spectral waveform analysis with image documentation. Complete exam focused on the bilateral lower extremity veins. COMPARISON: No relevant prior studies available. FINDINGS: Right deep veins: Unremarkable. The common femoral, femoral, proximal profunda femoral and popliteal veins are patent without thrombus. Normal Doppler waveforms. Normal compressibility and/or augmentation response. Right superficial veins: Saphenofemoral junction is patent without thrombus. Left deep veins: Unremarkable. The common femoral, femoral, proximal profunda femoral and popliteal veins are patent without thrombus. Normal Doppler waveforms. Normal compressibility and/or augmentation response. Left superficial veins: Saphenofemoral junction is patent without thrombus. Soft tissues: Unremarkable. IMPRESSION: No evidence of deep venous thrombosis.
[2020-08-16] MEDS: cefTRIAXone 1 GM in Sodium Chloride 0.9% 50 ML IV SCH (21:46)
[2020-08-16] MEDS: Azithromycin 500 MG in Sodium Chloride 0.9% 250 ML IV SCH (22:14)
[2020-08-16] MEDS: Ondansetron 4 MG/2 ML SDV IVPUSH PRN (22:26)
[2020-08-17 07:13] LABS: ANION GAP 10.4 mEq/L (7-13); CHLORIDE,CL 107 mmol/L (98-107); SODIUM,NA 141 mmol/L (136-145)
[2020-08-17] MEDS: Formoterol/Mometasone 200-5 MCG 8.8 GM Inhaler IH SCH ×2 (10:01→18:26)
[2020-08-17] MEDS: Enoxaparin 80 MG/0.8 ML Syringe SUBCUT SCH (10:03)
[2020-08-17] MEDS ORDERED: Potassium Chloride 10 MEQ Tab.ER PO ONE (12:51)
--- NOTE | 2020-08-17 12:55 | PCM.PN ---
- General Info Date of Service: 08/17/20 Admission Dx/Problem (Free Text): Admission Diagnosis/Problem Admission Diagnosis/Problem Pneumonia Subjective Update: feeling okay, still have cough with some sputum production Shortness of breath is better but still on [place] oxygen No abdominal pain, no nausea, no diarrhea Functional Status: Reports: Pain Controlled, Tolerating Diet, Ambulating - Review of Systems General: Reports: Fever (low grade) Pulmonary: Reports: Shortness of Breath, Cough. Denies: Pleuritic Chest Pain Cardiovascular: Denies: Chest Pain, Edema Genitourinary: Denies: Dysuria - Patient Data Vitals - Most Recent: Last Vital Signs Temp 99.0 F 08/17/20 08:44 Pulse 67 08/17/20 08:44 Resp 20 08/17/20 08:44 BP 96/52 L 08/17/20 08:44 Pulse Ox 98 08/17/20 08:44 Weight - Most Recent: 150 lb I&O - Last 24 Hours: Intake & Output 08/16/20 08/17/20 08/17/20 22:59 06:59 14:59 Intake Total 550 550 Balance 550 550 Lab Results Last 24 Hours: Laboratory Results - last 24 hr 08/17/20 08/17/20 08/17/20 Range/Units 06:05 06:05 06:05 WBC 3.3 L (5.0-10.0) 10^3/uL RBC 4.29 (4.2-5.4) 10^6/uL Hgb 13.6 (12.0-16.0) g/dL Hct 41.1 (37.0-47.0) % MCV 95.8 (80-100) fL MCH 31.7 (27.0-34.0) pg MCHC 33.1 (33.0-35.0) g/dL Plt Count 179 (150-450) 10^3/uL Neut % (Auto) 43.8 (42.2-75.2) % Lymph % (Auto) 33.9 (20.5-50.1) % Grainger % (Auto) 15.3 H (2-8) % Eos % (Auto) 6.7 H (1.0-3.0) % Baso % (Auto) 0.3 (0.0-1.0) % D-Dimer, Quantitative 549 H (0-400) ng/mL Sodium 141 (136-145) mmol/L Potassium 3.4 L (3.5-5.1) mmol/L Chloride 107 (98-107) mmol/L Carbon Dioxide 27 (21-32) mmol/L Anion Gap 10.4 (7-13) mEq/L BUN 7 (7-18) mg/dL Creatinine 0.62 (0.55-1.02) mg/dL Est Cr Clr Drug Dosing 58.19 mL/min Estimated GFR (MDRD) > 60 Glucose 95 (74-99) mg/dL Calcium 8.1 L (8.5-10.1) mg/dL Aaron Results Last 24 Hours: Microbiology 08/15/20 17:23 Aerobic Blood Culture - Preliminary Blood - Arm, Right NO GROWTH AFTER 1 DAY Anaerobic Blood Culture - Preliminary NO GROWTH AFTER 1 DAY Med Orders - Current: Current Medications Acetaminophen (Tylenol) 650 mg PO Q4H PRN PRN Reason: Pain (Mild 1-3)/fever Last Admin: 08/16/20 17:34 Dose: 650 mg Documented by: Albuterol (Proventil Hfa) 0 gm INH Q4HR PRN PRN Reason: Wheezing Diphenhydramine HCl (Benadryl) 25 mg PO DAILY PRN PRN Reason: Allergies Azithromycin 500 mg/ Sodium (Chloride) 250 mls @ 250 mls/hr IV Q24H [facility] Last Infusion: 08/17/20 00:53 Dose: Infused Documented by: Ceftriaxone Sodium 1 gm/ (Sodium Chloride) 50 mls @ 100 mls/hr IV Q24H [facility] Last Infusion: 08/16/20 22:19 Dose: Infused Documented by: Lidocaine (Lidoderm 5%) 700 mg TOP DAILY PRN PRN Reason: Pain Mometasone Furoate/Formoterol Fumar (Dulera 200-5 Mcg) 2 puff IH BIDRT [facility] Last Admin: 08/17/20 10:01 Dose: 2 puff Documented by: Ondansetron HCl (Zofran) 4 mg IVPUSH Q8H PRN PRN Reason: Nausea/Vomiting Last Admin: 08/16/20 22:26 Dose: 4 mg Documented by: Discontinued Medications Enoxaparin Sodium (Lovenox) 80 mg SUBCUT Q12HR [facility] Last Admin: 08/17/20 10:03 Dose: 80 mg Documented by: Furosemide (Lasix) 20 mg IVPUSH BID [facility] Last Admin: 08/16/20 10:49 Dose: 20 mg Documented by: Iopamidol (Isovue-370 (76%)) 100 ml IVPUSH ONETIME ONE Stop: 08/15/20 19:32 Last Admin: 08/15/20 20:32 Dose: 75 ml Documented by: Potassium Chloride (Klor-Con 10) 40 meq PO ONETIME ONE Stop: 08/17/20 12:52 - Exam Quality Assessment: Supplemental Oxygen General: Alert, Oriented Neck: Supple Lungs: Normal Respiratory Effort, Rhonchi (basilar) Cardiovascular: Regular Rate, Regular Rhythm GI/Abdominal Exam: Normal Bowel Sounds, Soft, Non-Tender Extremities: No Pedal Edema Sepsis Event Note - Evaluation Sepsis Screening Result: No Definite Risk - Focused Exam Vital Signs: Vital Signs Temp Pulse Resp BP BP Pulse Ox 08/17/20 08:44 99.0 F 67 20 96/52 L 98 08/17/20 04:34 98 F 62 20 113/56 L 97 - Problem List & Annotations (1) Hypoxemia SNOMED Code(s): 903482274 Code(s): R09.02 - HYPOXEMIA Status: Acute Current Visit: No (2) Pneumonia SNOMED Code(s): 416948988 Code(s): J18.9 - PNEUMONIA, UNSPECIFIED ORGANISM Status: Acute Current Visit: No Qualifiers: Pneumonia type: due to unspecified organism Laterality: bilateral Lung location: lower lobe of lung Qualified Code(s): J18.9 - Pneumonia, unspecified organism - Problem List Review Problem List Initiated/Reviewed/Updated: Yes - My Orders Last 24 Hours: My Active Orders 08/17/20 12:51 Potassium Chloride [Klor-Con 10] 40 meq PO ONETIME ONE 08/17/20 21:00 Enoxaparin [Lovenox] 40 mg SUBCUT Q12HR 08/18/20 05:11 BASIC METABOLIC PANEL,BMP [CHEM] AM CBC WITH AUTO DIFF [HEME] AM DD [D-DIMER QUANTITATIVE] [COAG] AM 08/19/20 05:11 BASIC METABOLIC PANEL,BMP [CHEM] AM CBC WITH AUTO DIFF [HEME] AM DD [D-DIMER QUANTITATIVE] [COAG] AM 08/20/20 05:11 BASIC METABOLIC PANEL,BMP [CHEM] AM CBC WITH AUTO DIFF [HEME] AM DD [D-DIMER QUANTITATIVE] [COAG] AM 08/21/20 05:11 BASIC METABOLIC PANEL,BMP [CHEM] AM CBC WITH AUTO DIFF [HEME] AM - Plan Plan:: 80-year-old lady who has a history of previous Covid 19 infection in the middle July. That time she was hospitalized mostly for GI symptoms. Was treated with remdesivir and steroids. The patient presented with increasing shortness of breath in the past 2 days prior to admission. Albuterol inhaler did not help. Had fever up to 101. Has been checking oxygen saturations at home and it has been running as low as 85-87 on room air. No associated chest pain, abdominal pain, diarrhea. No apparent sick contact but she was out shopping, met with family, came to the clinic earlier. Acute hypoxemic respiratory failure We will supplement oxygen as needed taper as possible Abnormal chest x-ray The diffuse bilateral pulmonary opacities are typical for Covid. The patient had Covid infection earlier, tested negative for Covid this time. This is likely secondary to prior Covid infection Less likely new Covid infection. Might represent acute non-Covid viral or bacterial pneumonia. pending sputum culture, blood culture, procalcitonin empirically treat with ceftriaxone and azithromycin Will treat with dulera, albuterol as needed less likely acute congestive heart failure - BNP is low - stopped diuretics Elevated d-dimer This might be secondary to recent Covid infection High risk for DVT, pulmonary embolism, thrombotic complications of Covid 19 infection lower extremity ultrasound to rule out DVT negative ct chest r/o PE negative DDimer is coming down switch to Lovenox high dose prophylaxis plan to discharge on apixaban for continued prophylaxis Follow d-dimer daily
[2020-08-17] MEDS: cefTRIAXone 1 GM in Sodium Chloride 0.9% 50 ML IV SCH (20:54)
[2020-08-17] MEDS: Enoxaparin 40 MG/0.4 ML Syringe SUBCUT SCH (20:58)
[2020-08-17] MEDS: Azithromycin 500 MG in Sodium Chloride 0.9% 250 ML IV SCH (21:36)
[2020-08-17] MEDS: Ondansetron 4 MG/2 ML SDV IVPUSH PRN (22:56)
[2020-08-17] MEDS: Acetaminophen 325 MG Tab PO PRN (23:37)
[2020-08-18] MEDS ORDERED: Sodium Chloride 0.9% 10 ML Syringe FLUSH PRN (05:14)
[2020-08-18 07:58] LABS: ANION GAP 13.5 mEq/L (7-13); CHLORIDE,CL 108 mmol/L (98-107); SODIUM,NA 140 mmol/L (136-145)
[2020-08-18] MEDS: Formoterol/Mometasone 200-5 MCG 8.8 GM Inhaler IH SCH ×2 (08:25→17:44)
[2020-08-18] MEDS: Ondansetron 4 MG/2 ML SDV IVPUSH PRN (08:30)
[2020-08-18] MEDS: Enoxaparin 40 MG/0.4 ML Syringe SUBCUT SCH ×2 (08:30→21:18)
--- NOTE | 2020-08-18 13:45 | PCM.PN ---
- General Info Date of Service: 08/18/20 Admission Dx/Problem (Free Text): Admission Diagnosis/Problem Admission Diagnosis/Problem Pneumonia Subjective Update: feeling okay, still have cough Shortness of breath is better but still on [place] oxygen at 3 L/m No abdominal pain, no nausea, no diarrhea no fever, no chills Functional Status: Reports: Pain Controlled, Tolerating Diet - Review of Systems General: Reports: Weakness. Denies: Fever Pulmonary: Reports: Shortness of Breath Cardiovascular: Denies: Chest Pain Gastrointestinal: Denies: Abdominal Pain Genitourinary: Denies: Dysuria Neurological: Denies: Confusion - Patient Data Vitals - Most Recent: Last Vital Signs Temp 97.4 F 08/18/20 08:39 Pulse 58 L 08/18/20 08:39 Resp 20 08/18/20 08:39 BP 80/33 L 08/18/20 08:39 Pulse Ox 100 08/18/20 08:39 Weight - Most Recent: 150 lb I&O - Last 24 Hours: Intake & Output 08/17/20 08/18/20 08/18/20 22:59 06:59 14:59 Intake Total 43 554 Balance 43 554 Lab Results Last 24 Hours: Laboratory Results - last 24 hr 08/18/20 08/18/20 08/18/20 Range/Units 06:59 06:59 06:59 WBC 3.3 L (5.0-10.0) 10^3/uL RBC 4.05 L (4.2-5.4) 10^6/uL Hgb 13.0 (12.0-16.0) g/dL Hct 39.2 (37.0-47.0) % MCV 96.8 (80-100) fL MCH 32.1 (27.0-34.0) pg MCHC 33.2 (33.0-35.0) g/dL Plt Count 187 (150-450) 10^3/uL Neut % (Auto) 39.2 L (42.2-75.2) % Lymph % (Auto) 42.5 (20.5-50.1) % Carter % (Auto) 14.1 H (2-8) % Eos % (Auto) 3.9 H (1.0-3.0) % Baso % (Auto) 0.3 (0.0-1.0) % Add Manual Diff Yes Neutrophils % (Manual) 43 (42-75) % Band Neutrophils % 1 % Lymphocytes % (Manual) 36 (20-50) % Atypical Lymphs % 7 % Monocytes % (Manual) 11 H (2-8) % Eosinophils % (Manual) 2 (1-3) % D-Dimer, Quantitative 401 H (0-400) ng/mL Sodium 140 (136-145) mmol/L Potassium 4.5 (3.5-5.1) mmol/L Chloride 108 H (98-107) mmol/L Carbon Dioxide 23 (21-32) mmol/L Anion Gap 13.5 H (7-13) mEq/L BUN 6 L (7-18) mg/dL Creatinine 0.62 (0.55-1.02) mg/dL Est Cr Clr Drug Dosing 58.19 mL/min Estimated GFR (MDRD) > 60 Glucose 96 (74-99) mg/dL Calcium 8.1 L (8.5-10.1) mg/dL Aaron Results Last 24 Hours: Microbiology 08/15/20 17:23 Aerobic Blood Culture - Preliminary Blood - Arm, Right NO GROWTH AFTER 2 DAYS Anaerobic Blood Culture - Preliminary NO GROWTH AFTER 2 DAYS Med Orders - Current: Current Medications Acetaminophen (Tylenol) 650 mg PO Q4H PRN PRN Reason: Pain (Mild 1-3)/fever Last Admin: 08/17/20 23:37 Dose: 650 mg Documented by: Albuterol (Proventil Hfa) 0 gm INH Q4HR PRN PRN Reason: Wheezing Diphenhydramine HCl (Benadryl) 25 mg PO DAILY PRN PRN Reason: Allergies Enoxaparin Sodium (Lovenox) 40 mg SUBCUT Q12HR [facility] Last Admin: 08/18/20 08:30 Dose: 40 mg Documented by: Azithromycin 500 mg/ Sodium (Chloride) 250 mls @ 250 mls/hr IV Q24H [facility] Last Infusion: 08/17/20 23:31 Dose: Infused Documented by: Ceftriaxone Sodium 1 gm/ (Sodium Chloride) 50 mls @ 100 mls/hr IV Q24H [facility] Last Infusion: 08/17/20 21:35 Dose: Infused Documented by: Lidocaine (Lidoderm 5%) 700 mg TOP DAILY PRN PRN Reason: Pain Miscellaneous Information (Remove Patch) 1 ea TRDERM BEDTIME [facility] Mometasone Furoate/Formoterol Fumar (Dulera 200-5 Mcg) 2 puff IH BIDRT [facility] Last Admin: 08/18/20 08:25 Dose: 2 puff Documented by: Ondansetron HCl (Zofran) 4 mg IVPUSH Q8H PRN PRN Reason: Nausea/Vomiting Last Admin: 08/18/20 08:30 Dose: 4 mg Documented by: Sodium Chloride (Saline Flush) 10 ml FLUSH ASDIRECTED PRN PRN Reason: Keep Vein Open Discontinued Medications Enoxaparin Sodium (Lovenox) 80 mg SUBCUT Q12HR [facility] Last Admin: 08/17/20 10:03 Dose: 80 mg Documented by: Furosemide (Lasix) 20 mg IVPUSH BID [facility] Last Admin: 08/16/20 10:49 Dose: 20 mg Documented by: Iopamidol (Isovue-370 (76%)) 100 ml IVPUSH ONETIME ONE Stop: 08/15/20 19:32 Last Admin: 08/15/20 20:32 Dose: 75 ml Documented by: Potassium Chloride (Klor-Con 10) 40 meq PO ONETIME ONE Stop: 08/17/20 12:52 Last Admin: 08/17/20 13:08 Dose: 40 meq Documented by: - Exam Quality Assessment: Supplemental Oxygen General: Alert, Oriented Neck: Supple Lungs: Normal Respiratory Effort, Decreased Breath Sounds. No: Wheezing Cardiovascular: Regular Rate, Regular Rhythm GI/Abdominal Exam: Normal Bowel Sounds, Soft, Non-Tender Extremities: No: Pedal Edema Skin: Warm Psy/Mental Status: Alert, Normal Affect, Normal Mood Sepsis Event Note - Evaluation Sepsis Screening Result: No Definite Risk - Focused Exam Vital Signs: Vital Signs Temp Pulse Resp BP Pulse Ox 08/18/20 08:39 97.4 F 58 L 20 80/33 L 100 - Problem List & Annotations (1) Hypoxemia SNOMED Code(s): 330930773 Code(s): R09.02 - HYPOXEMIA Status: Acute Current Visit: No (2) Pneumonia SNOMED Code(s): 911796737 Code(s): J18.9 - PNEUMONIA, UNSPECIFIED ORGANISM Status: Acute Current Visit: No Qualifiers: Pneumonia type: due to unspecified organism Laterality: bilateral Lung location: lower lobe of lung Qualified Code(s): J18.9 - Pneumonia, unspecified organism - Problem List Review Problem List Initiated/Reviewed/Updated: Yes - My Orders Last 24 Hours: My Active Orders 08/17/20 21:00 Enoxaparin [Lovenox] 40 mg SUBCUT Q12HR 08/18/20 05:14 Sodium Chloride 0.9% [Saline Flush] 10 ml FLUSH ASDIRECTED PRN 08/18/20 06:59 PROCALCITONIN [REF] DAILY 08/18/20 21:00 Remove Patch 1 [facility] 08/19/20 05:11 BASIC METABOLIC PANEL,BMP [CHEM] AM CBC WITH AUTO DIFF [HEME] AM DD [D-DIMER QUANTITATIVE] [COAG] AM 08/19/20 13:00 PROCALCITONIN [REF] DAILY 08/20/20 05:11 BASIC METABOLIC PANEL,BMP [CHEM] AM CBC WITH AUTO DIFF [HEME] AM DD [D-DIMER QUANTITATIVE] [COAG] AM 08/20/20 13:00 PROCALCITONIN [REF] DAILY 08/21/20 05:11 BASIC METABOLIC PANEL,BMP [CHEM] AM CBC WITH AUTO DIFF [HEME] AM 08/21/20 13:00 PROCALCITONIN [REF] DAILY - Plan Plan:: 80-year-old lady who has a history of previous Covid 19 infection in the middle July. That time she was hospitalized mostly for GI symptoms. Was treated with remdesivir and steroids. The patient presented with increasing shortness of breath in the past 2 days prior to admission. Albuterol inhaler did not help. Had fever up to 101. Has been checking oxygen saturations at home and it has been running as low as 85-87 on room air. No associated chest pain, abdominal pain, diarrhea. No apparent sick contact but she was out shopping, met with family, came to the clinic earlier. Acute hypoxemic respiratory failure We will supplement oxygen as needed taper as possible most likely will need to go home on oxygen Abnormal chest x-ray The diffuse bilateral pulmonary opacities are typical for Covid. The patient had Covid infection earlier, tested negative for Covid this time. This is likely secondary to prior Covid infection Less likely new Covid infection. Might represent acute non-Covid viral or bacterial pneumonia. pending sputum culture, blood culture, procalcitonin empirically treat with ceftriaxone and azithromycin Will treat with dulera, albuterol as needed less likely acute congestive heart failure - BNP is low - stopped diuretics Elevated d-dimer This might be secondary to recent Covid infection High risk for DVT, pulmonary embolism, thrombotic complications of Covid 19 infection lower extremity ultrasound to rule out DVT negative ct chest r/o PE negative DDimer is improving continue Lovenox high dose prophylaxis Follow d-dimer daily
[2020-08-18] MEDS: Acetaminophen 325 MG Tab PO PRN (20:38)
[2020-08-18] MEDS: cefTRIAXone 1 GM in Sodium Chloride 0.9% 50 ML IV SCH (20:39)
[2020-08-18] MEDS: Azithromycin 500 MG in Sodium Chloride 0.9% 250 ML IV SCH (21:17)
[2020-08-19 07:19] LABS: ANION GAP 11.2 mEq/L (7-13); CHLORIDE,CL 112 mmol/L (98-107); SODIUM,NA 144 mmol/L (136-145)
[2020-08-19] MEDS: Enoxaparin 40 MG/0.4 ML Syringe SUBCUT SCH (09:36)
[2020-08-19] MEDS: Formoterol/Mometasone 200-5 MCG 8.8 GM Inhaler IH SCH (09:41)
--- NOTE | 2020-08-19 10:46 | PCM.DCSUM1 ---
Discharge Summary - Hospital Course Free Text/Narrative:: 80-year-old lady who has a history of previous Covid 19 infection in the middle July. That time she was hospitalized mostly for GI symptoms. Was treated with remdesivir and steroids. The patient presented with increasing shortness of breath in the past 2 days prior to admission. Albuterol inhaler did not help. Had fever up to 101. Has been checking oxygen saturations at home and it has been running as low as 85-87 on room air. No associated chest pain, abdominal pain, diarrhea. No apparent sick contact but she was out shopping, met with family, came to the clinic earlier. Acute hypoxemic respiratory failure will need to go home on oxygen will do walking desat prior to leaving Abnormal chest x-ray The diffuse bilateral pulmonary opacities are typical for Covid. The patient had Covid infection earlier, tested negative for Covid this time. This is likely secondary to prior Covid infection low procalcitonin empirically treated with ceftriaxone and azithromycin but with the low procalcitonin unlikely that he has bacterial pneumonia - will not cont Abx Will treat with dulera, albuterol as needed Elevated d-dimer This is likley secondary to recent Covid infection High risk for DVT, pulmonary embolism, thrombotic complications of Covid 19 infection lower extremity ultrasound to rule out DVT was negative ct chest r/o PE negative DDimer is improving continue ASA 324 mg daily for prophylaxis at least for 4 weeks - Discharge Data Discharge Date: 08/19/20 Discharge Disposition: Home, Self-Care 01 Condition: Fair - Referral to Home Health Primary Care Physician: [facility] - Discharge Diagnosis/Problem(s) (1) Hypoxemia SNOMED Code(s): 273687819 ICD Code: R09.02 - HYPOXEMIA Status: Acute Current Visit: No (2) Pneumonia SNOMED Code(s): 555293525 ICD Code: J18.9 - PNEUMONIA, UNSPECIFIED ORGANISM Status: Acute Current Visit: No Qualifiers: Pneumonia type: due to unspecified organism Laterality: bilateral Lung location: lower lobe of lung Qualified Code(s): J18.9 - Pneumonia, unspecified organism - Patient Instructions Diet: Heart Healthy Diet Activity: As Tolerated - Discharge Plan *PRESCRIPTION DRUG MONITORING PROGRAM REVIEWED*: Not Applicable *COPY OF PRESCRIPTION DRUG MONITORING REPORT IN PATIENT KEITH: Not Applicable Prescriptions/Med Rec: Aspirin [Aspirin EC] 325 mg PO DAILY #30 tablet.dr Mometasone/Formoterol [Dulera 200-5 MCG] 2 puff IH BIDRT #1 inhaler Home Medications: Home Meds Lidocaine 5% [Lidoderm 5%] 1 patch TOP DAILY PRN 06/23/18 [History] Sodium Chloride [Saline Nasal Fisk] 1 spray NASBOTH ASDIRECTED PRN 06/23/18 [History] Acetaminophen [Tylenol Arthritis Pain] 2 tab PO ASDIRECTED 06/28/18 [History] diphenhydrAMINE [Benadryl] 25 mg PO DAILY PRN 12/14/19 [History] Acetaminophen [Tylenol] 650 mg PO Q4H PRN tablet 07/26/20 [Rx] Albuterol Sulfate [Proair Hfa] 1 puff INH QID 14 Days #1 07/26/20 [Rx] Aspirin [Aspirin EC] 325 mg PO DAILY #30 tablet. 08/19/20 [Rx] Mometasone/Formoterol [Dulera 200-5 MCG] 2 puff IH BIDRT #1 inhaler 08/19/20 [Rx] Oxygen Therapy Mode: Nasal Cannula Referrals: Metaferia,Celsa, [facility] [Ordering Only Provider] - (in 2-3 days) - Discharge Summary/Plan Comment DC Time >30 min.: No - General Info Date of Service: 08/19/20 Admission Dx/Problem (Free Text: Admission Diagnosis/Problem Admission Diagnosis/Problem Pneumonia Subjective Update: feeling okay, still have cough Shortness of breath is better but still on [place] oxygen at 2 L/m No abdominal pain, no nausea, no diarrhea no fever, no chills - Review of Systems General: Denies: Fever, Weakness Pulmonary: Reports: Shortness of Breath (improved) Cardiovascular: Denies: Chest Pain Gastrointestinal: Denies: Abdominal Pain Genitourinary: Denies: Dysuria - Patient Data Vitals - Most Recent: Last Vital Signs Temp 97.5 F 08/19/20 08:49 Pulse 62 08/19/20 08:49 Resp 20 08/19/20 08:49 BP 108/52 L 08/19/20 08:49 Pulse Ox 95 08/19/20 08:49 Weight - Most Recent: 150 lb I&O - Last 24 hours: Intake & Output 08/18/20 08/19/20 08/19/20 22:59 06:59 14:59 Intake Total 500 325 Balance 500 325 Lab Results - Last 24 hrs: Laboratory Results - last 24 hr 08/15/20 08/18/20 08/19/20 Range/Units 17:23 06:59 06:10 WBC 3.6 L (5.0-10.0) 10^3/uL RBC 3.88 L (4.2-5.4) 10^6/uL Hgb 12.4 (12.0-16.0) g/dL Hct 37.9 (37.0-47.0) % MCV 97.7 (80-100) fL MCH 32.0 (27.0-34.0) pg MCHC 32.7 L (33.0-35.0) g/dL Plt Count 171 (150-450) 10^3/uL Neut % (Auto) 40.6 L (42.2-75.2) % Lymph % (Auto) 42.1 (20.5-50.1) % Dubois % (Auto) 13.4 H (2-8) % Eos % (Auto) 2.8 (1.0-3.0) % Baso % (Auto) 1.1 H (0.0-1.0) % D-Dimer, Quantitative (0-400) ng/mL Sodium (136-145) mmol/L Potassium (3.5-5.1) mmol/L Chloride (98-107) mmol/L Carbon Dioxide (21-32) mmol/L Anion Gap (7-13) mEq/L BUN (7-18) mg/dL Creatinine (0.55-1.02) mg/dL Est Cr Clr Drug Dosing mL/min Estimated GFR (MDRD) Glucose (74-99) mg/dL Calcium (8.5-10.1) mg/dL Procalcitonin 0.05 0.06 (<0.10) ng/mL 08/19/20 08/19/20 Range/Units 06:10 06:10 WBC (5.0-10.0) 10^3/uL RBC (4.2-5.4) 10^6/uL Hgb (12.0-16.0) g/dL Hct (37.0-47.0) % MCV (80-100) fL MCH (27.0-34.0) pg MCHC (33.0-35.0) g/dL Plt Count (150-450) 10^3/uL Neut % (Auto) (42.2-75.2) % Lymph % (Auto) (20.5-50.1) % Dubois % (Auto) (2-8) % Eos % (Auto) (1.0-3.0) % Baso % (Auto) (0.0-1.0) % D-Dimer, Quantitative 519 H (0-400) ng/mL Sodium 144 (136-145) mmol/L Potassium 4.2 (3.5-5.1) mmol/L Chloride 112 H (98-107) mmol/L Carbon Dioxide 25 (21-32) mmol/L Anion Gap 11.2 (7-13) mEq/L BUN 7 (7-18) mg/dL Creatinine 0.64 (0.55-1.02) mg/dL Est Cr Clr Drug Dosing 56.37 mL/min Estimated GFR (MDRD) > 60 Glucose 97 (74-99) mg/dL Calcium 8.0 L (8.5-10.1) mg/dL Procalcitonin (<0.10) ng/mL [facility] Results - Last 24 hrs: Microbiology 08/15/20 17:23 Aerobic Blood Culture - Preliminary Blood - Arm, Right NO GROWTH AFTER 3 DAYS Anaerobic Blood Culture - Preliminary NO GROWTH AFTER 3 DAYS Med Orders - Current: Current Medications Acetaminophen (Tylenol) 650 mg PO Q4H PRN PRN Reason: Pain (Mild 1-3)/fever Last Admin: 08/18/20 20:38 Dose: 650 mg Documented by: Albuterol (Proventil Hfa) 0 gm INH Q4HR PRN PRN Reason: Wheezing Diphenhydramine HCl (Benadryl) 25 mg PO DAILY PRN PRN Reason: Allergies Enoxaparin Sodium (Lovenox) 40 mg SUBCUT Q12HR [facility] Last Admin: 08/19/20 09:36 Dose: Not Given Documented by: Azithromycin 500 mg/ Sodium (Chloride) 250 mls @ 250 mls/hr IV Q24H [facility] Last Infusion: 08/18/20 23:51 Dose: Infused Documented by: Ceftriaxone Sodium 1 gm/ (Sodium Chloride) 50 mls @ 100 mls/hr IV Q24H [facility] Last Infusion: 08/18/20 21:18 Dose: Infused Documented by: Lidocaine (Lidoderm 5%) 700 mg TOP DAILY PRN PRN Reason: Pain Miscellaneous Information (Remove Patch) 1 ea TRDERM BEDTIME [facility] Last Admin: 08/18/20 21:18 Dose: Not Given Documented by: Mometasone Furoate/Formoterol Fumar (Dulera 200-5 Mcg) 2 puff IH BIDRT [facility] Last Admin: 08/19/20 09:41 Dose: 2 puff Documented by: Ondansetron HCl (Zofran) 4 mg IVPUSH Q8H PRN PRN Reason: Nausea/Vomiting Last Admin: 08/18/20 08:30 Dose: 4 mg Documented by: Sodium Chloride (Saline Flush) 10 ml FLUSH ASDIRECTED PRN PRN Reason: Keep Vein Open Discontinued Medications Enoxaparin Sodium (Lovenox) 80 mg SUBCUT Q12HR [facility] Last Admin: 08/17/20 10:03 Dose: 80 mg Documented by: Furosemide (Lasix) 20 mg IVPUSH BID [facility] Last Admin: 08/16/20 10:49 Dose: 20 mg Documented by: Iopamidol (Isovue-370 (76%)) 100 ml IVPUSH ONETIME ONE Stop: 08/15/20 19:32 Last Admin: 08/15/20 20:32 Dose: 75 ml Documented by: Potassium Chloride (Klor-Con 10) 40 meq PO ONETIME ONE Stop: 08/17/20 12:52 Last Admin: 08/17/20 13:08 Dose: 40 meq Documented by: - Exam Quality Assessment: Reports: Supplemental Oxygen General: Reports: Alert, Oriented Neck: Reports: Supple Lungs: Reports: Clear to Auscultation, Normal Respiratory Effort Cardiovascular: Reports: Regular Rate, Regular Rhythm GI/Abdominal Exam: Normal Bowel Sounds, Soft, Non-Tender Extremities: No Pedal Edema Neurological: Reports: No New Focal Deficit Psy/Mental Status: Reports: Alert, Normal Affect, Normal Mood
[2020-08-19 13:03] VITALS: BP 110/56; PULSE 64
== END 2020-08-19 15:20 | disposition home or self-care (01) | DRG 139 ==
LOC: DL.ED 15:56 → DL.MS 20:06
PROVIDERS: ADMIT Internal Medicine; ATTEND Internal Medicine
PROC: 8E0ZXY6 Isolation (ICD-10-PCS; principal; 2020-08-15)
DX: J18.9 Pneumonia, unspecified organism (principal); J96.01 Acute respiratory failure with hypoxia; H26.9 Unspecified cataract; J45.909 Unspecified asthma, uncomplicated; M19.90 Unspecified osteoarthritis, unspecified site; F41.9 Anxiety disorder, unspecified; E11.9 Type 2 diabetes mellitus without complications; D64.9 Anemia, unspecified; Z20.828 Contact with and (suspected) exposure to other viral communicable diseases; R93.89 Abnormal findings on diagnostic imaging of other specified body structures; R79.1 Abnormal coagulation profile; Z98.49 Cataract extraction status, unspecified eye; Z99.81 Dependence on supplemental oxygen; Z86.19 Personal history of other infectious and parasitic diseases; Z79.899 Other long term (current) drug therapy; Z79.82 Long term (current) use of aspirin; Z79.51 Long term (current) use of inhaled steroids; Z88.5 Allergy status to narcotic agent
CPT/HCPCS: 36415; 71045; 71260; 80048; 80053; 83605; 83735; 83880; 84100; 84145; 84484; 85025; 85379; 86140; 87040; 87804; 93005; 93010; 93970; 94618; 99284; 99285-25; A9270-GY; J0456; J0696; J1650; J1940; J2405; J7050; Q9967; U0002

== ENCOUNTER 2021-01-28 16:43 | Emergency (ER) | payer BC, MEDICARE, OTHER ==
--- NOTE | 2021-01-28 16:52 | EDM.PDOC ---
<Mary Arechiga Say - Last Filed: 01/29/21 06:03> ED HPI GENERAL MEDICAL PROBLEM - General Stated Complaint: IN BY AMBULANCE Time Seen by Provider: 01/28/21 16:43 - Related Data Allergies Allergy/AdvReac Type Severity Reaction Status Date / Time codeine Allergy Unknown Nausea and Verified 08/15/20 17:13 Vomiting tramadol Allergy Unknown Nausea and Verified 08/15/20 17:13 Vomiting Home Meds: Home Meds Lidocaine 5% [Lidoderm 5%] 1 patch TOP DAILY PRN 06/23/18 [History] Sodium Chloride [Saline Nasal [place]] 1 spray NASBOTH ASDIRECTED PRN 06/23/18 [History] Acetaminophen [Tylenol Arthritis Pain] 2 tab PO ASDIRECTED 06/28/18 [History] diphenhydrAMINE [Benadryl] 25 mg PO DAILY PRN 12/14/19 [History] Acetaminophen [Tylenol] 650 mg PO Q4H PRN tablet 07/26/20 [Rx] Albuterol Sulfate [Proair Hfa] 1 puff INH QID 14 Days #1 07/26/20 [Rx] Aspirin [Aspirin EC] 325 mg PO DAILY #30 tablet. 08/19/20 [Rx] Mometasone/Formoterol [Dulera 200-5 MCG] 2 puff IH BIDRT #1 inhaler 08/19/20 [R x] Course - Re-Assessments/Exams Free Text/Narrative Re-Assessment/Exam: 01/28/21 20:06 Other granddaughter present, relays at times has noticed some confusion or forgetfulness in past couple of months, no prior notation of weakness. Stated her dad said patient fell in bathroom and had to be assisted off floor. Patient has no recall of falling. Denies pain though momentarily prior c/o frontal headache. no bruising or signs of injury noted. Patient oriented to person place, continued confusion date time and recall of recent events. Patient reported taking benadryl earlier today for cough. 01/28/21 20:11 [facility] no bed availability. Family preference for [facility] vs [facility] due to distance of travel. Dr Schultz ED accepting. Concern if possible TPA candidate. TC Dr Shook Neuu[facility]. Patient Currently no major deficits, approximately 5 hours from left sided weakness. Patient non candidate. Patient and family aware of transfer. Results of imaging discussed. Granddaughter in room. Patient consent for tx. Plan tx via [facility]. Departure - Departure Time of Disposition: 19:51 Disposition: DC/Tfer to Acute Hospital 02 Condition: Undetermined Clinical Impression: Atypical pneumonia, Transient weakness of left lower extremity Altered mental status Qualifiers: Altered mental status type: disorientation Qualified Code(s): R41.0 - Disorientation, unspecified - Discharge Information *PRESCRIPTION DRUG MONITORING PROGRAM REVIEWED*: No *COPY OF PRESCRIPTION DRUG MONITORING REPORT IN PATIENT KEITH: No Referrals: PCP,None [Primary Care Provider] - Forms: ED Department Discharge <Sandi Nascimento - Last Filed: 01/29/21 15:58> ED HPI GENERAL MEDICAL PROBLEM - General Source of Information: Reports: Patient, EMS, RN, RN Notes Reviewed History Limitations: Reports: No Limitations - History of Present Illness INITIAL COMMENTS - FREE TEXT/NARRATIVE: Patient presents to the ED via [facility] at the request of her family for fever and shortness of breath. Upon arrival to this facility the patient is alert and oriented to self and place, disoriented to time and situation. She is a poor historian, but is able to state her productive cough started about two days ago and has maintained in severity. She notes a fever accompanied her cough, but she does not note her Tmax. She attests to a history of active COVID infection in July 2020; she has not received any vaccination for COVID. She was hospitalized with COVID from 07/22/21 - 07/26/21 and recovered without complication. She denies recent illness, vision changes, sore throat, sinus pressure, chest pain/pressure, palpitations, shortness of breath, abdominal pain, nausea, vomiting, dysuria, hematuria, or diarrhea. 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 Musculoskeletal History: Reports: Arthritis Neurological History: Reports: None Psychiatric History: Reports: Anxiety Endocrine/Metabolic History: Reports: Diabetes, Type II Hematologic History: Reports: Anemia Immunologic History: Reports: None Oncologic (Cancer) History: Reports: None Dermatologic History: Reports: Other (See Below) Other Dermatologic History: RED RASHY AREA TO L) FT, LOWER LEG - Infectious Disease History Infectious Disease History: Reports: Measles, Novel Coronavirus, Shingles - Past Surgical History Head Surgeries/Procedures: Reports: None HEENT Surgical History: Reports: None, Cataract Surgery Cardiovascular Surgical History: Reports: None Respiratory Surgical History: Reports: None GI Surgical History: Reports: None Female Surgical History: Reports: None Musculoskeletal Surgical History: Reports: None Social & Family History - Family History Family Medical History: No Pertinent Family History - Caffeine Use Caffeine Use: Reports: Tea Other Caffeine Use: 12 OZ DAILY - Living Situation & Occupation Living situation: Reports: with Family ED ROS GENERAL - Review of Systems Review Of Systems: Comprehensive ROS is negative, except as noted in HPI. ED EXAM, GENERAL - Physical Exam Exam: See Below General Appearance: Alert, No Apparent Distress, Other (Pleasantly confused) Eye Exam: Bilateral Eye: EOMI, Normal Inspection, PERRL (3mm) Ears: Normal External Exam, Normal Canal, Hearing Grossly Normal, Normal TMs Ear Exam: Bilateral Ear: Auricle Normal, Canal Normal, TM normal Nose: Normal Inspection, Normal Mucosa, No Blood Throat/Mouth: Normal Voice, No Airway Compromise, Other (Red, beefy tongue; Dry mucous membranes) Head: Atraumatic, Normocephalic Neck: Normal Inspection, Supple, Non-Tender, Full Range of Motion Respiratory/Chest: No Accessory Muscle Use, Decreased Breath Sounds, Other (Tenderness to palpation of left, lateral ribs due (not new); On 2L of O2 via NC) Cardiovascular: Regular Rate, Rhythm, No Edema, No Gallop, No JVD, No Murmur, No Rub, Tachycardia Peripheral Pulses: 2+: Radial (L), Radial (R) GI/Abdominal: Normal Bowel Sounds, Soft, Non-Tender, No Distention, No Mass, Pelvis Stable (Female) Exam: Deferred Rectal (Female) Exam: Deferred Back Exam: Normal Inspection, Full Range of Motion Extremities: Normal Inspection, Normal Range of Motion, Non-Tender, Normal Capillary Refill, No Pedal Edema Neurological: Alert, Normal Gait, Confused, Slow to Respond, Memory Loss Recent Events Psychiatric: Normal Affect, Normal Mood Skin Exam: Warm, Dry, Intact, Normal Color, No Rash. No: Ecchymosis, Erythema, Jaundice, Mottled, Pallor, Petechiae #1 Interpretation EKG Date: 01/28/21 Time: 17:36 Rhythm: Other (Sinus Tachycardia) Rate (Beats/Min): 113 [place]: LAD-Left [place] Deviation P-Wave: Present QRS: Other (RBBB and LBBB; not new) ST-T: Normal QT: Normal (Borderline prolonged with QTc 484) MD/PQ Interval: 0.151 Comparison: Change From Previous EKG (RBBB and LBBB chronic, increase in q-wave in III) EKG Interpretation Comments: Sinus tachycardia; q-wave in III, aVR, aVF, and V1. Course - Vital Signs Last Recorded V/S: Last Vital Signs Temp 101.2 F H 01/28/21 17:08 Pulse 115 H 01/28/21 17:08 Resp 20 01/28/21 17:08 BP 154/58 H 01/28/21 17:08 Pulse Ox 90 L 01/28/21 17:08 - Orders/Labs/Meds Orders: Active Orders 24 hr Category Date Time Status CULTURE BLOOD [BC] Stat Lab 01/28/21 17:00 Received CULTURE BLOOD [BC] Stat Lab 01/28/21 17:05 Received Blood Culture x2 Reflex Set [OM.PC] Stat Oth 01/28/21 17:32 Ordered Labs: Laboratory Tests 01/28/21 01/28/21 01/28/21 Range/Units 16:26 16:55 17:00 WBC 13.9 H (5.0-10.0) 10^3/uL RBC 4.73 (4.2-5.4) 10^6/uL Hgb 15.6 D (12.0-16.0) g/dL Hct 46.1 (37.0-47.0) % MCV 97.5 (80-100) fL MCH 33.0 (27.0-34.0) pg MCHC 33.8 (33.0-35.0) g/dL Plt Count 154 (150-450) 10^3/uL Neut % (Auto) 75.7 H (42.2-75.2) % Lymph % (Auto) 18.6 L (20.5-50.1) % [place] % (Auto) 4.8 (2-8) % Eos % (Auto) 0.5 L (1.0-3.0) % Baso % (Auto) 0.4 (0.0-1.0) % Add Manual Diff Yes Neutrophils % (Manual) 64 (42-75) % Band Neutrophils % 9 % Lymphocytes % (Manual) 24 (20-50) % Monocytes % (Manual) 3 (2-8) % PT (9.0-12.0) SEC INR (0.9-1.2) APTT (22.0-34.0) SEC D-Dimer, Quantitative (0-400) ng/mL ABG pH (7.35-7.45) ABG pCO2 (35-45) mmHg ABG pO2 (70-100) mmHg ABG HCO3 (22-26) mmol/L ABG O2 Saturation (95-100) % ABG Base Excess ((-2)-(+3)) mmol/L Miguelito Test O2 Delivery Device Oxygen Flow Rate Sodium (136-145) mmol/L Potassium (3.5-5.1) mmol/L Chloride (98-107) mmol/L Carbon Dioxide (21-32) mmol/L Anion Gap (7-13) mEq/L BUN (7-18) mg/dL Creatinine (0.55-1.02) mg/dL Est Cr Clr Drug Dosing mL/min Estimated GFR (MDRD) BUN/Creatinine Ratio (No establ ref range) Glucose (70-99) mg/dL Lactic Acid (0.4-2.0) mmol/L Calcium (8.5-10.1) mg/dL Total Bilirubin (0.2-1.0) mg/dL AST (15-37) U/L ALT (14-59) U/L Alkaline Phosphatase (46-116) U/L Troponin I (0.000-0.056) ng/mL C-Reactive Protein (0.0-0.9) mg/dL Total Protein (6.4-8.2) g/dL Albumin (3.4-5.0) g/dL Globulin Albumin/Globulin Ratio Urine Color Yellow (YELLOW) Urine Appearance Clear (CLEAR) Urine pH 8.5 (5.0-9.0) Ur Specific [place] 1.020 (1.005-1.030) Urine Protein Negative (NEGATIVE) Urine Glucose (UA) Negative (NEGATIVE) Urine Ketones Negative (NEGATIVE) Urine Occult Blood Negative (NEGATIVE) Urine Nitrite Negative (NEGATIVE) Urine Bilirubin Negative (NEGATIVE) Urine Urobilinogen 0.2 (0.2-1.0) mg/dL Ur Leukocyte Esterase Negative (NEGATIVE) Influenza Type A RNA Negative (NEGATIVE) Influenza Type B RNA Negative (NEGATIVE) SARS-CoV-2 RNA (KALLIE) Negative (NEGATIVE) 01/28/21 01/28/21 01/28/21 Range/Units 17:00 17:00 17:00 WBC (5.0-10.0) 10^3/uL RBC (4.2-5.4) 10^6/uL Hgb (12.0-16.0) g/dL Hct (37.0-47.0) % MCV (80-100) fL MCH (27.0-34.0) pg MCHC (33.0-35.0) g/dL Plt Count (150-450) 10^3/uL Neut % (Auto) (42.2-75.2) % Lymph % (Auto) (20.5-50.1) % [place] % (Auto) (2-8) % Eos % (Auto) (1.0-3.0) % Baso % (Auto) (0.0-1.0) % Add Manual Diff Neutrophils % (Manual) (42-75) % Band Neutrophils % % Lymphocytes % (Manual) (20-50) % Monocytes % (Manual) (2-8) % PT 11.3 (9.0-12.0) SEC INR 1.1 (0.9-1.2) APTT 25.0 (22.0-34.0) SEC D-Dimer, Quantitative 1240 H (0-400) ng/mL ABG pH (7.35-7.45) ABG pCO2 (35-45) mmHg ABG pO2 (70-100) mmHg ABG HCO3 (22-26) mmol/L ABG O2 Saturation (95-100) % ABG Base Excess ((-2)-(+3)) mmol/L Miguelito Test O2 Delivery Device Oxygen Flow Rate Sodium 138 (136-145) mmol/L Potassium 3.7 (3.5-5.1) mmol/L Chloride 103 (98-107) mmol/L Carbon Dioxide 23 (21-32) mmol/L Anion Gap 15.7 H (7-13) mEq/L BUN 12 (7-18) mg/dL Creatinine 0.82 (0.55-1.02) mg/dL Est Cr Clr Drug Dosing 44.27 mL/min Estimated GFR (MDRD) > 60 BUN/Creatinine Ratio 14.6 (No establ ref range) Glucose 100 H (70-99) mg/dL Lactic Acid (0.4-2.0) mmol/L Calcium 8.4 L (8.5-10.1) mg/dL Total Bilirubin 1.7 H (0.2-1.0) mg/dL AST 27 (15-37) U/L ALT 21 (14-59) U/L Alkaline Phosphatase 101 (46-116) U/L Troponin I < 0.017 (0.000-0.056) ng/mL C-Reactive Protein 1.4 H (0.0-0.9) mg/dL Total Protein 8.1 (6.4-8.2) g/dL Albumin 3.1 L (3.4-5.0) g/dL Globulin 5.0 Albumin/Globulin Ratio 0.62 Urine Color (YELLOW) Urine Appearance (CLEAR) Urine pH (5.0-9.0) Ur Specific [place] (1.005-1.030) Urine Protein (NEGATIVE) Urine Glucose (UA) (NEGATIVE) Urine Ketones (NEGATIVE) Urine Occult Blood (NEGATIVE) Urine Nitrite (NEGATIVE) Urine Bilirubin (NEGATIVE) Urine Urobilinogen (0.2-1.0) mg/dL Ur Leukocyte Esterase (NEGATIVE) Influenza Type A RNA (NEGATIVE) Influenza Type B RNA (NEGATIVE) SARS-CoV-2 RNA (KALLIE) (NEGATIVE) 01/28/21 01/28/21 Range/Units 17:00 17:10 WBC (5.0-10.0) 10^3/uL RBC (4.2-5.4) 10^6/uL Hgb (12.0-16.0) g/dL Hct (37.0-47.0) % MCV (80-100) fL MCH (27.0-34.0) pg MCHC (33.0-35.0) g/dL Plt Count (150-450) 10^3/uL Neut % (Auto) (42.2-75.2) % Lymph % (Auto) (20.5-50.1) % [place] % (Auto) (2-8) % Eos % (Auto) (1.0-3.0) % Baso % (Auto) (0.0-1.0) % Add Manual Diff Neutrophils % (Manual) (42-75) % Band Neutrophils % % Lymphocytes % (Manual) (20-50) % Monocytes % (Manual) (2-8) % PT (9.0-12.0) SEC INR (0.9-1.2) APTT (22.0-34.0) SEC D-Dimer, Quantitative (0-400) ng/mL ABG pH 7.50 H (7.35-7.45) ABG pCO2 27 L (35-45) mmHg ABG pO2 65 L (70-100) mmHg ABG HCO3 20.8 L (22-26) mmol/L ABG O2 Saturation 95 (95-100) % ABG Base Excess -1 ((-2)-(+3)) mmol/L Mige[place]ito Test Lb O2 Delivery Device Nasal cannula Oxygen Flow Rate 2 Sodium (136-145) mmol/L Potassium (3.5-5.1) mmol/L Chloride (98-107) mmol/L Carbon Dioxide (21-32) mmol/L Anion Gap (7-13) mEq/L BUN (7-18) mg/dL Creatinine (0.55-1.02) mg/dL Est Cr Clr Drug Dosing mL/min Estimated GFR (MDRD) BUN/Creatinine Ratio (No establ ref range) Glucose (70-99) mg/dL Lactic Acid 1.7 (0.4-2.0) mmol/L Calcium (8.5-10.1) mg/dL Total Bilirubin (0.2-1.0) mg/dL AST (15-37) U/L ALT (14-59) U/L Alkaline Phosphatase (46-116) U/L Troponin I (0.000-0.056) ng/mL C-Reactive Protein (0.0-0.9) mg/dL Total Protein (6.4-8.2) g/dL Albumin (3.4-5.0) g/dL Globulin Albumin/Globulin Ratio Urine Color (YELLOW) Urine Appearance (CLEAR) Urine pH (5.0-9.0) Ur Specific [place] (1.005-1.030) Urine Protein (NEGATIVE) Urine Glucose (UA) (NEGATIVE) Urine Ketones (NEGATIVE) Urine Occult Blood (NEGATIVE) Urine Nitrite (NEGATIVE) Urine Bilirubin (NEGATIVE) Urine Urobilinogen (0.2-1.0) mg/dL Ur Leukocyte Esterase (NEGATIVE) Influenza Type A RNA (NEGATIVE) Influenza Type B RNA (NEGATIVE) SARS-CoV-2 RNA (KALLIE) (NEGATIVE) Meds: Medications Discontinued Medications Generic Name Dose Route Start Last Admin Trade Name Jose Luis PRN Reason Stop Dose Admin Acetaminophen 650 mg 01/28/21 16:56 01/28/21 17:15 Acetaminophen 325 Mg Tab PO 01/28/21 16:57 650 mg NOW ONE Administration Sodium Chloride 1,000 mls @ 999 mls/hr 01/28/21 16:56 01/28/21 17:16 Normal Saline IV 01/28/21 17:56 999 mls/hr .BOLUS ONE Administration Sodium Chloride 1,000 mls @ 200 mls/hr 01/28/21 19:32 01/28/21 19:38 Normal Saline IV 01/29/21 00:31 200 mls/hr .BOLUS ONE Administration Levofloxacin/Dextrose 500 mg/ 100 mls @ 100 mls/hr 01/28/21 19:57 01/28/21 20:11 Premix IV 01/28/21 20:56 100 mls/hr ONETIME ONE Administration Iopamidol 100 ml 01/28/21 18:05 01/28/21 18:50 Iopamidol 755 Mg/Ml 100 Ml Bottle IVPUSH 01/28/21 18:06 66 ml ONETIME ONE Administration - Re-Assessments/Exams Free Text/Narrative Re-Assessment/Exam: 01/28/21 COVID and Influenza negative. WBC elevated at 13.9 with left shift present; no evidence of anemia. Electrolytes, kidney function, and liver function appropriate via CMP. EKG shows ST with RBBB and LBBB; not new when compared to previous EKG. Troponin negative. D-dimer elevated at 1200+. Review of records shows decrease in D-dimer following COVID infection with spike today. Given history of COVID infection and sudden SOB will obtain PE CT to r/o PE. Granddaughter in waiting room, discussed findings of lab work and examination thus far, and plan for imaging. Granddaughter states patient was unable to move left side of body earlier today, which originally prompted family to call 911. [address] head to r/o stroke. - My Orders Last 24 Hours: My Active Orders 01/28/21 17:00 CULTURE BLOOD [BC] Stat 01/28/21 17:05 CULTURE BLOOD [BC] Stat 01/28/21 17:32 Blood Culture x2 Reflex Set [OM.PC] Stat - Assessment/Plan Last 24 Hours: My Active Orders 01/28/21 17:00 CULTURE BLOOD [BC] Stat 01/28/21 17:05 CULTURE BLOOD [BC] Stat 01/28/21 17:32 Blood Culture x2 Reflex Set [OM.PC] Stat
[2021-01-28] MEDS ORDERED: Sodium Chloride 0.9% 1,000 ML IV ONE ×2 (16:56→19:32)
[2021-01-28] MEDS ORDERED: Acetaminophen 325 MG Tab PO ONE (16:56)
[2021-01-28 17:15] VITALS: BP 154/58; PULSE 115
[2021-01-28 17:18] LABS: BASE EXCESS ARTERIAL -1 mmol/L ((-2)-(+3)); BICARBONATE,ARTERIAL 20.8 mmol/L (22-26); O2 DELIVERY DEVICE NASAL CANNULA; O2 SATURATION ARTERIAL 95 % (95-100); PCO2 ARTERIAL 27 mmHg (35-45); PO2 ARTERIAL 65 mmHg (70-100)
[2021-01-28 17:21] LABS: O2 FLOW RATE 2
[2021-01-28 17:22] LABS: ALLEN TEST LB
[2021-01-28 17:42] LABS: ANION GAP 15.7 mEq/L (7-13); CHLORIDE,CL 103 mmol/L (98-107); SODIUM,NA 138 mmol/L (136-145)
[2021-01-28 17:57] LABS: CORONAVIRUS COVID-19 NAA NEGATIVE (NEGATIVE)
[2021-01-28] MEDS ORDERED: Iopamidol 755 Mg/ML 100 ML Bottle IVPUSH ONE (18:05)
--- NOTE | 2021-01-28 19:01 | CT ---
PROCEDURE INFORMATION: Exam: CT Head Without Contrast Exam date and time: 01/28/2021 6:32 PM Age: 81 years old Clinical indication: Transient decreased motor function to left side TECHNIQUE: Imaging protocol: Computed tomography of the head without contrast. Radiation optimization: All CT scans at this facility use at least one of these dose optimization techniques: automated exposure control; mA and/or kV adjustment per patient size (includes targeted exams where dose is matched to clinical indication); or iterative reconstruction. COMPARISON: No relevant prior studies available. FINDINGS: Brain: Age-related involutional changes and chronic microvascular ischemic disease. No evidence for acute transcortical infarct. No mass effect or midline shift. No extra-axial collection. No acute intracranial hemorrhage. Basal cisterns are patent. Cerebral ventricles: No ventriculomegaly. Bones/joints: Unremarkable. No acute fracture. Paranasal sinuses: Mucosal thickening involving the ethmoid air cells and right maxillary sinus. Mastoid air cells: Visualized mastoid air cells are well aerated. Orbital cavity: Bilateral cataract surgery. Soft tissues: Unremarkable. IMPRESSION: No evidence for acute transcortical infarct, acute intracranial hemorrhage, or mass effect.
--- NOTE | 2021-01-28 19:12 | CT ---
PROCEDURE INFORMATION: Exam: CT Chest With Contrast; Diagnostic Exam date and time: 01/28/2021 6:19 PM Age: 81 years old Clinical indication: Other: R/O pulmonary embolism; HX of covid infection TECHNIQUE: Imaging protocol: Diagnostic computed tomography of the chest with contrast. Total images: 398 Radiation optimization: All CT scans at this facility use at least one of these dose optimization techniques: automated exposure control; mA and/or kV adjustment per patient size (includes targeted exams where dose is matched to clinical indication); or iterative reconstruction. Contrast material: [id number]; Contrast volume: 66 ml; Contrast route: INTRAVENOUS (IV); COMPARISON: CT Chest w Cont 08/15/2020 7:06 PM FINDINGS: Thyroid: The visualized thyroid gland demonstrates no gross abnormality. Lungs: No acute tracheobronchial abnormalities. Multifocal alveolar opacities are seen bilaterally, most pronounced in the right upper lobe and right middle lobe lateral segment, with centrilobular nodularity. Consider atypical organisms. Chronic peripheral reticular changes in the lung bases and to a lesser degree the peripheral upper lobes suggests underlying chronic interstitial fibrosis. No pulmonary mass lesions are identified. Pleural spaces: No pleural effusion. No pneumothorax. Heart: Heart size normal. Mild coronary artery calcification. No pericardial effusion. Mediastinal space: The esophagus is largely contracted but demonstrates no gross abnormality. Pulmonary arteries: The pulmonary arteries enhance appropriately with no evidence of pulmonary embolism. Aorta: The aorta enhances appropriately without evidence of dissection or aneurysm. No mediastinal hematoma. Mild aortic ectasia/tortuosity and mild calcific atherosclerosis. Lymph nodes: No supraclavicular or axillary adenopathy. No mediastinal or hilar adenopathy. Bones/joints: No acute osseous abnormalities are identified. Soft tissues: The soft tissues of the chest wall demonstrate no acute abnormality. Other findings: Visualized upper abdominal structures are unremarkable. IMPRESSION: 1. No evidence of pulmonary embolism or aortic dissection. 2. Multifocal nodular infiltrates in the right upper lobe and right middle lobe lateral segment, and possibly minor involvement in the left upper lobe. Consider atypical organisms. 3. Underlying moderate chronic interstitial fibrosis predominantly in the basilar distributions.
[2021-01-28] MEDS ORDERED: Levofloxacin/Dextrose 5%-Water 500 MG in Premix Bag 1 BAG IV ONE (19:57)
== END 2021-01-28 20:40 ==
LOC: DL.ED 16:43
DX: J18.9 Pneumonia, unspecified organism (principal); R41.0 Disorientation, unspecified; M62.81 Muscle weakness (generalized); J45.909 Unspecified asthma, uncomplicated; E11.9 Type 2 diabetes mellitus without complications; M19.90 Unspecified osteoarthritis, unspecified site; Z88.5 Allergy status to narcotic agent; Z79.82 Long term (current) use of aspirin; Z79.899 Other long term (current) drug therapy; Z20.822 Contact with and (suspected) exposure to COVID-19
CPT/HCPCS: 0240U; 36415; 36600; 70450; 71260; 80053; 81003; 82803; 83605; 84484; 85025; 85379; 85610; 85730; 86140; 87040; 93005; 93010; 96365; 99284; A9270; J1956; J7030; Q9967

== ENCOUNTER 2023-01-26 15:11 | Emergency (ER) | payer MEDICARE, OTHER ==
[2023-01-26 15:26] VITALS: BP 133/51; PULSE 84
[2023-01-26] MEDS ORDERED: Sodium Chloride 0.9% 10 ML Syringe FLUSH PRN (15:31)
[2023-01-26] MEDS ORDERED: Ondansetron 4 MG/2 ML SDV IVPUSH ONE (15:38)
[2023-01-26] MEDS ORDERED: fentaNYL 100 MCG/2 ML SDV IVPUSH ONE ×2 (15:39→16:14)
[2023-01-26 16:28] LABS: PTT,PARTIAL THROMBOPLSTIN TIME 29.3 SEC (22.0-34.0)
[2023-01-26 16:35] LABS: ANION GAP 13.9 mEq/L (7-13); CHLORIDE,CL 107 mmol/L (98-107); ESTIMATED GFR 87 mL/min (>=60); SODIUM,NA 141 mmol/L (136-145)
[2023-01-26 16:47] LABS: AMPHETAMINES,URINE NEGATIVE (NEGATIVE); BARBITURATES,URINE NEGATIVE (NEGATIVE); BENZODIAZEPINE,URINE NEGATIVE (NEGATIVE); MDMA (ECSTASY), URINE NEGATIVE (NEGATIVE); METHADONE,URINE NEGATIVE (NEGATIVE); METHAMPHETAMINES,URINE NEGATIVE (NEGATIVE); OPIATES,URINE NEGATIVE (NEGATIVE); OXYCODONE,URINE NEGATIVE (NEGATIVE); PHENCYCLIDINE,URINE NEGATIVE (NEGATIVE); TCA,URINE NEGATIVE (NEGATIVE)
[2023-01-26] MEDS ORDERED: Iopamidol 612 MG/ML 100 ML Bottle IVPUSH ONE (16:50)
[2023-01-26] MEDS ORDERED: Piperacillin/Tazobactam 3.375 GM in Sodium Chloride 0.9% 100 ML IV ONE (18:05)
[2023-01-26] MEDS ORDERED: Lactulose Soln 10 GM/15 ML 30 ML UD Cup PO ONE (18:09)
[2023-01-26] MEDS ORDERED: Sodium Chloride 0.9% 1,000 ML IV ONE (18:32)
== END 2023-01-26 19:19 ==
LOC: DL.ED 15:11
DX: N39.0 Urinary tract infection, site not specified (principal); K85.90 Acute pancreatitis without necrosis or infection, unspecified; G93.41 Metabolic encephalopathy; E80.6 Other disorders of bilirubin metabolism; E11.9 Type 2 diabetes mellitus without complications; Z88.5 Allergy status to narcotic agent; Z79.82 Long term (current) use of aspirin; Z86.16 Personal history of COVID-19
CPT/HCPCS: 36415; 74177; 80053; 80305-QW; 81001; 82140; 82150; 83605; 83690; 83735; 84145; 84484; 85025; 85610; 85730; 86140; 87040; 87086; 87088; 87186; 93005; 93010; 96361; 96365; 96375; 96376; 99285; 99285-25; A9270-GY; J2405; J2543; J3010; J3490; J7030; Q9967